=== PATIENT | male | born 1950 | race Asian ===

== ENCOUNTER 2017-04-02 19:05 | Emergency (ER) | payer BC, OTHER ==
[2017-04-02 19:15] VITALS: BP 157/77; PULSE 76; TEMP 98.5
--- NOTE | 2017-04-02 19:40 | PDOC ---
Attending Attestation - Resident Resident Name: Ruby Collado - ED Attending Attestation I have performed the following: I have examined & evaluated the patient, The case was reviewed & discussed with the resident, I agree w/resident's findings & plan, Exceptions are as noted - HPI HPI: 04/02/17 19:38 Pt s/p fall, sustaining a laceration to back of head. admits to drink alcohol prior to presentation.
--- NOTE | 2017-04-02 19:55 | PDOC ---
History of Present Illness - General Chief Complaint: Laceration Stated Complaint: LACERATION/FALL/INTOX Time Seen by Provider: 04/02/17 19:16 - History of Present Illness Initial Comments: 04/02/17 19:54 "I was drunk" Patient is a 66 y.o. male who presents after falling while inebriated. As per patient he fell backwards htting his occiput. Patient is unsure of LOC and is still inebriated at time of HPI. Past History - Past Medical History Allergies/Adverse Reactions: Allergies Allergy/AdvReac Type Severity Reaction Status Date / Time Penicillins Allergy Unknown Verified 04/02/17 19:12 Home Medications: Ambulatory Orders Unobtainable [Unobtainable] 07/02/14 COPD: No Diabetes: Yes HTN: Yes Hypercholesterolemia: Yes - Suicide/Smoking/Psychosocial Hx Smoking History: Never smoked Have you smoked in the past 12 months: No Information on smoking cessation initiated: No Hx Alcohol Use: No Drug/Substance Use Hx: No Review of Systems - Review of Systems Constitutional: No: Chills, Fever HEENTM: No: Blurred Vision Respiratory: No: Shortness of Breath Cardiac (ROS): No: Chest Pain Neurological: Yes: Headache. No: Seizure, Tingling, Tremors, Weakness *Physical Exam - Vital Signs Last Vital Signs Temp Pulse Resp BP Pulse Ox 98.5 F 76 18 157/77 97 04/02/17 19:12 04/02/17 19:12 04/02/17 19:12 04/02/17 19:12 04/02/17 19:12 - Physical Exam General Appearance: Yes: Alcohol on Breath, Thin HEENT: positive: RUDY, Other (4 cm linear mid occiptal laceration; @ time of exam clean, dry with no active hemorrhage). negative: TM Bulging, TM Dull, TM Erythema Respiratory/Chest: positive: Lungs Clear Cardiovascular: positive: S1, S2 Gastrointestinal/Abdominal: positive: Normal Bowel Sounds, Soft Neurologic: positive: application integrator II-XII NML intact, Fully Oriented, Alert, Respond to painful stimul, Responsive, Finger to Nose (mild finger to nose dysmetria likely 2/2 to active alcohol intoxication) ED Treatment Course - RADIOLOGY Radiology Studies Ordered: Category Date Time Status CERVICAL SPINE CT W/O CONTR [CT] Stat CT Scan 04/02/17 19:[address] WITHOUT CONTRAST [CT] Stat CT Scan 04/02/17 19:19 Ordered Medical Decision Making - Medical Decision Making 04/02/17 22:02 Patient is a 66 y.o. male who presents after a fall with occiptal head trauma and uncertain LOC. On PE, patient is alert, moving all 4 extremities and neurologically intact. CT head/C-spine negative. 4 staple applied to laceration, patient given return precautions and discharged home. *DC/Admit/Observation/Transfer Diagnosis at time of Disposition: Laceration - Discharge Dispostion Disposition: HOME Condition at time of disposition: Good Admit: No - Referrals Referrals: Celine Fitzgerald MD [Primary Care Provider] - - Patient Instructions Printed Discharge Instructions: DI for Laceration Repair -- [place], DI for Alcohol Abuse Additional Instructions: Please return to the Emergency Department for any severe headache, confusion, visual changes or worsening or concerning symptoms. - Post Discharge Activity
--- NOTE | 2017-04-02 21:41 | PDOC ---
Attending Attestation - Resident Resident Name: Ruby Collado - ED Attending Attestation I have performed the following: I have examined & evaluated the patient, The case was reviewed & discussed with the resident, I agree w/resident's findings & plan, Exceptions are as noted - HPI HPI: 04/03/17 19:40 Pt s/p fall + AOB, probable LOC. Denies any complaints. Sustained laceration to top of head. - Physicial Exam PE: 04/02/17 21:39 *Physical Exam General Appearance: Yes: Appropriately Dressed. No: Apparent Distress, Intoxicated HEENT: positive: EOMI, RUDY, Normal ENT Inspection, Normal Voice, TMs Normal, Pharynx Normal. superficial laceration to the parieto-occipital region approximately 1 cm. negative: Pale Conjunctivae, Photophobia, Scleral Icterus ( R), Scleral Icterus (L) Neck: positive: Trachea midline, Normal Thyroid, Supple. negative: Tender, Rigid, Carotid bruit, Stridor, Lymphadenopathy (R), Lymphadenopathy (L), Thyromegaly Respiratory/Chest: positive: Lungs Clear, Normal Breath Sounds. negative: Chest Tender, Respiratory Distress, Accessory Muscle Use, Labored Respiration, RES, Crackles, Rales, Rhonchi, Stridor, Wheezing, Dullness Cardiovascular: positive: Regular Rhythm, Regular Rate, S1, S2. negative: Edema , JVD, Murmur, Bradycardia, Tachycardia Vascular Pulses: Dorsalis-Pedis (R): 2+, Doralis-Pedis (L): 2+ Gastrointestinal/Abdominal: positive: Normal Bowel Sounds, Flat, Soft. negative : Tender, Organomegaly, Pulsatile Mass, Increased Bowel Sounds, Decreased BS, Distended, Guarding, Rebound, Hernia, Hepatomegaly, Spleenomegaly Lymphatic: negative: Adenopathy, Tenderness Musculoskeletal: positive: Normal Inspection. negative: CVA Tenderness, Decreased Range of Motion Extremity: positive: Normal Capillary Refill, Normal Inspection, Normal Range of Motion, Pelvis Stable. negative: Tender, Pedal Edema, Swelling, Erythema Integumentary: positive: Normal Color, Dry, Warm. negative: Cyanotic, Erythema , Jaundice, Rash Neurologic: positive: assessment counselor II-XII NML intact, Fully Oriented, Alert, Normal Mood/ Affect, Motor Strength 5/5. negative: EOM Palsy, Facial Droop, Sensory Deficit - Medical Decision Making 04/03/17 19:39 Pt treated and released
--- NOTE | 2017-04-08 14:39 | EKG ---
Test Reason : Blood Pressure : / mmHG Vent. Rate : 071 BPM Atrial Rate : 071 BPM P-R Int : 148 ms QRS Dur : 072 ms QT Int : 404 ms P-R-T Axes : 061 058 069 degrees QTc Int : 439 ms NORMAL SINUS RHYTHM POSSIBLE LEFT ATRIAL ENLARGEMENT BORDERLINE ECG WHEN COMPARED WITH ECG OF 19-APR-2000 08:25, NONSPECIFIC T WAVE ABNORMALITY NO LONGER EVIDENT IN LATERAL LEADS Confirmed by RAJ TELLO, MELVIN ([id number]) on 04/08/2017 2:39:24 PM Referred By: Confirmed By:MELVIN ANTHONY MD
== END 2017-04-02 22:15 | disposition home or self-care (01) ==
LOC: JER 19:05
PROC: 0HQ0XZZ Repair Scalp Skin, External Approach (ICD-10-PCS; principal; 2017-04-02)
DX: S01.01XA Laceration without foreign body of scalp, initial encounter (principal); W18.39XA Other fall on same level, initial encounter; Y93.89 Activity, other specified; Y92.018 Other place in single-family (private) house as the place of occurrence of the external cause; F10.10 Alcohol abuse, uncomplicated; I10 Essential (primary) hypertension; E78.00 Pure hypercholesterolemia, unspecified; E11.9 Type 2 diabetes mellitus without complications
CPT/HCPCS: 70450-TC; 72125-TC; 93005; 93010; 99283-25

== ENCOUNTER 2018-06-13 13:53 | Inpatient (IN) | payer BC, OTHER ==
--- NOTE | 2018-06-13 15:43 | PDOC ---
History of Present Illness - General Chief Complaint: Nausea/Vomiting Stated Complaint: VOMITING Time Seen by Provider: 06/13/18 15:42 - History of Present Illness Initial Comments: 67 yo M with PMH of ETOH abuse, HTN, HLD, DM presenting with hematemesis x 3 days. Patient is not forthcoming with his history but his is at the bedside and says she has seen significant dark red blood in his vomit, about five episodes per day. Patient has had a poor appetite. He reports that he has not had alcohol in two days. He usually drinks half a bottle of Henessy. Patient is is unsure if he has had a colonoscopy or endoscopy in the past. He has felt very weak and has had trouble standing or walking. His also notes that he has had some changes that started about three or four months ago: he is forgetful and will ask the same questions repeatedly. She also reports that the patient has had urinary incontinence. No fevers, chills, chest pain, or shortness of breath. PCP: Dr. Fitzgerald Past History - Past Medical History Allergies/Adverse Reactions: Allergies Allergy/AdvReac Type Severity Reaction Status Date / Time Penicillins Allergy Unknown Verified 06/13/18 14:03 Home Medications: Ambulatory Orders Unobtainable 07/02/14 COPD: No Diabetes: Yes HTN: Yes Hypercholesterolemia: Yes - Suicide/Smoking/Psychosocial Hx Smoking History: Never smoked Have you smoked in the past 12 months: No Hx Alcohol Use: No Drug/Substance Use Hx: No Review of Systems - Review of Systems Comments:: Constitutional: no fever, no chills HEENT: no throat pain, no dysphagia Cardiovascular: no chest pain, no palpitations Respiratory: no cough, no shortness of breath Gastrointestinal: no abdominal pain, + vomiting Genitourinary: no dysuria, no frequency Musculoskeletal: no myalgia, no arthralgia Skin: no rash, no itching Neurologic: no headache, +weakness *Physical Exam - Vital Signs Last Vital Signs Temp Pulse Resp BP Pulse Ox 97.9 F 68 18 174/75 H 99 06/13/18 13:55 06/13/18 13:55 06/13/18 13:55 06/13/18 13:55 06/13/18 13:55 - Physical Exam Comments: General: Awake, alert, and fully oriented, in no acute distress Head: No signs of trauma Eyes: EOMI, sclera anicteric ENT: Dry mucus membranes Neck: Normal ROM, supple Lungs: Lungs clear, Normal breath sounds Cardio: Regular rhythm, S1 and S2 present Abdomen: Soft, nontender. No guarding, no rebound, no masses Extremities: Normal range of motion, Distal pulses present SKIN: Warm, Dry, normal turgor Neurologic: Cranial nerves II through XII grossly intact. Normal speech Moderate Sedation - Procedure Monitoring Vital Signs: Procedure Monitoring Vital Signs Temperature 97.9 F 06/13/18 13:55 Pulse Rate 68 06/13/18 13:55 Respiratory Rate 18 06/13/18 13:55 Blood Pressure 174/75 H 06/13/18 13:55 O2 Sat by Pulse Oximetry (%) 99 06/13/18 13:55 ED Treatment Course - LABORATORY CBC & Chemistry Diagram: 06/13/18 16:42 06/13/18 16:42 Medical Decision Making - Medical Decision Making 67 yo M with PMH of ETOH abuse, HTN, HLD, DM presenting with hematemesis x 3 days. hgb=6.5, 2 units prbc's ordered Discussed case with Dr. Sadler, GI specialist, who recommends protonix drip. He does not recommend antibiotics at this time. Plan for admission Here in the ED has asked repeatedly if he can eat or have ice cream. Appears to have forgotten that we have repeatedly told him that he cannot eat. CT head: "1. mild chronic small vessel ischemic changes 2. otherwise, negative unenhanced CT of the brain" No leukocytosis. Normal coags. Lipase elevated, 1301. Cr=1.7, no prior values. EKG: rate 89, QTc 438, NSR, nonspecific ST and T wave abnormality 06/13/18 18:42 Update patient's daughters, one at the bedside and another on the phone. Anamaria, Annette [phone] Patient's , Simran [phone] 06/13/18 19:29 Dr. Marinelli discussed case with inpatient team who accepted patient for admission under Dr. Rodriguez 06/13/18 19:39 *DC/Admit/Observation/Transfer Diagnosis at time of Disposition: Anemia, Hematemesis - Discharge Dispostion Condition at time of disposition: Guarded Decision to Admit order: Yes - Referrals - Patient Instructions - Post Discharge Activity
[2018-06-13] MEDS ORDERED: FOLIC ACID INJECTION - 1 MG, THIAMINE HCL 100 MG, MULTIVIT INJECTION ADULT 10 ML in SOD... IVPB ONE (16:12)
[2018-06-13] MEDS ORDERED: PANTOPRAZOLE SODIUM 40 MG VIAL IVPUSH ONE (16:12)
[2018-06-13 17:04] LABS: EOS % 0.2 % (0-4.5); LYMPH % 17.1 % (8-40); MCH 31.4 pg (25.7-33.7); MCHC 34.5 g/dl (32.0-35.9); MEAN PLT VOLUME 7.5 fl (7.5-11.1); MONO % 7.8 % (3.8-10.2); NEUT % 73.9 % (42.8-82.8); PLATELET COUNT 691 K/MM3 (134-434); RBC 2.08 M/mm3 (4.00-5.60); RDW 16.5 % (11.9-15.9); WHITE BLOOD COUNT 9.3 K/mm3 (4.0-10.0)
[2018-06-13 17:08] LABS: HEMOGLOBIN 6.5 GM/dL (11.7-16.9)
[2018-06-13 17:17] LABS: INR 0.98 (0.83-1.09); PROTHROMBIN TIME (PATIENT) 11.6 SEC (9.7-13.0)
[2018-06-13 17:19] LABS: ACTIVATED PTT 25.7 SECONDS (25.2-36.5)
[2018-06-13 17:25] LABS: LIPASE 1301 U/L (73-393)
[2018-06-13 17:33] LABS: ALBUMIN 3.2 g/dl (3.4-5.0); ALK PHOS 140 U/L (45-117); ANION GAP 11 MMOL/L (8-16); BILIRUBIN,TOTAL 0.3 mg/dL (0.2-1); BLOOD UREA NITROGEN 20 mg/dL (7-18); CALCIUM 8.4 mg/dL (8.5-10.1); CHLORIDE 100 mmol/L (98-107); CO2 25 mmol/L (21-32); CREATININE 1.7 mg/dL (0.55-1.3); GLUCOSE,RANDOM 189 mg/dL (74-106); POTASSIUM 4.5 mmol/L (3.5-5.1); SGOT/AST 43 U/L (15-37); SGPT/ALT 46 U/L (13-61); SODIUM 136 mmol/L (136-145); TOT PROT 6.9 g/dl (6.4-8.2)
--- NOTE | 2018-06-13 18:12 | PDOC ---
Attending Attestation - HPI HPI: 06/13/18 18:26 The patient is a 67 year old male with past medical history significant for HTN , DM, HLD presents to the emergency department with hematemesis. The patient presents with 3 days of red to black episode of emesis, associated with melena. Per at bedside, the patients been having increased confusion. The patient reports hes a daily alcohol user. Denies hx of GI follow up. Denies fever, chills, chest pain, shortness of breath, or prior similar symptoms. Denies prior ICU stay. Denies hx of seizures. Allergies: penicillins PCP: Dr. Fitzgerald. - Physicial Exam PE: 06/13/18 18:26 Vitals: Triage Vital signs reviewed General Appearance: no acute distress, well nourished well developed, Neck: Supple;No Nuchal rigidity Chest Wall: Nontender Cardiac: Regular rate and rhythm, no murmurs, no rubs, no gallops, Lungs: Clear to auscultation bilateral, good air movement bilaterally, Abdomen: Soft, nondistended, normal bowel sounds, nontender to palpation Extremities: Full range of motion to all extremities, no cyanosis, clubbing, or edema Skin: Warm and dry, no rashes or lesions, no petechiae Psych: normal mood, normal affect - Medical Decision Making 06/13/18 18:28 Plan: EKG, CT head, Fluids, Type and Screen, Chest X-ray and Urine Culture. Admission: Microblog sent. Exam: CT head without IV contrast. DATE OF SERVICE: 2018-06-13 18:14:52 THIS DOCUMENT HAS BEEN ELECTRONICALLY SIGNED Darren Junior MD 06/13/2018 17:32 EXAMINING CHAIR ASSEMBLER Impression: 1. Mild chronic small vessel ischemic changes. 2. Otherwise, negative unenhanced CT of the brain. EKG: EKG performed at 17:19:53 demonstrate vent. rate of 89 bpm, normal sinus rhythm , Nonspecific ST anf T wave abnormality. Phone Calls: Call placed to Dr. Sadler at 6:05 pm. Case discussed with Dr. Sadler at 6:29 pm. 06/13/18 21:44 Documentation prepared by Nidhi Fung, acting as emergency medical technician basic for Kobi Marinelli MD. <Nidhi Fung - Last Filed: 06/13/18 21:44> - Resident Resident Name: Radha Root - ED Attending Attestation I have performed the following: I have examined & evaluated the patient, The case was reviewed & discussed with the resident, I agree w/resident's findings & plan, Exceptions are as noted - Critical Care Time Total Critical Care Time: 36 Critical Care Statement: The care of this patient involved high complexity decision making to prevent further life threatening deterioration of the patient 's condition and/or to evaluate & treat vital organ system(s) failure or risk of failure. - Medical Decision Making 06/13/18 22:37 67 years old past medical history significant for hypertension diabetes hyperlipidemia presents emergency department several day history of hematemesis Low hemoglobin and hematocrit patient being transfused 2 units packed red blood cells GI has been made aware Patient with no abdominal discomfort examination however lipase noted to be elevated At this time given no pain no fever no white count likely alcoholic pancreatitis patient will be admitted to medicine for further management with GI consultation after transfusion of blood for further management <Kobi Marinelli - Last Filed: 06/13/18 22:37>
--- NOTE | 2018-06-13 19:18 | PN ---
Teaching Attending Note Name of Resident: Carlos Almeida ATTENDING PHYSICIAN STATEMENT I saw and evaluated the patient. I reviewed the resident's note and discussed the case with the resident. I agree with the resident's findings and plan as documented. SUBJECTIVE: Patient is a 67 year old man with PMH of HTN, alcohol abuse, penicillin allergy , DM, HLD presents to the ER with hematemesis. The patient presents with 3 days of red to black episode of emesis, associated with melena. Per at bedside, the patients been having increased confusion. The patient reports hes a daily alcohol user - drinks half a bottle of Sraah daily. Patient is is unsure if he has evr had a colonoscopy or endoscopy. He has felt very weak and has had trouble standing or walking. His also notes that he has had some changes that started about three or four months ago: he is forgetful and will ask the same questions repeatedly. She also reports that the patient has had urinary incontinence. Denies history of GI follow up. Denies fever, chills, chest pain, shortness of breath, or prior similar symptoms. Denies prior ICU stay. Denies history of seizures. OBJECTIVE: Alert Vital Signs Period Temp Pulse Resp BP Sys/Colin Pulse Ox Last 24 Hr 97.9 F 68 18 174/75 99 HEENT: No Jaundice, eye redness or discharge, PERRLA, +Pallor, EOMI. Normocephalic, atraumatic. External ears are normal and hearing is grossly intact. No nasal discharge. Neck: Supple, nontender. No palpable adenopathy or thyromegaly. No JVD Chest: Good effort. Clear to auscultation and percussion. Heart: Regular. No S3, rub; 2/6 DANY Abdomen: Not distended, soft, nontender and no HSM. No rebound or guarding. Normoactive bowel sounds. Ext: Peripheral pulses intact. No leg edema. Skin: Warm and dry. No petechiae, rash or ecchymosis. Neuro: Alert. Oriented to person and place. CN 2-12 grossly intact. Sensation grossly intact in all four extremities and DTR are symmetric. Current Medications Generic Name Dose Route Start Last Admin Trade Name Freq PRN Reason Stop Dose Admin Folic Acid 1 mg/ Thiamine HCl 1,000 mls @ 125 mls/hr 06/13/18 16:12 06/13/18 16:56 100 mg/ Multivitamins/Minerals IVPB 06/14/18 00:11 125 mls/hr 10 ml/ Sodium Chloride ONCE ONE Administration Pantoprazole Sodium 80 mg/ 100 mls @ 10 mls/hr 06/13/18 18:30 Sodium Chloride IVPB Q10H HENRY 8 MG/HR Home Medications Medication Instructions Recorded Unobtainable 07/02/14 Abnormal Lab Results 06/13/18 06/13/18 06/13/18 16:42 16:42 16:42 RBC 2.08 L Hgb 6.5 L* Hct 19.0 L RDW 16.5 H Plt Count 691 H BUN 20 H Creatinine 1.7 H Random Glucose 189 H Calcium 8.4 L AST 43 H Alkaline Phosphatase 140 H Albumin 3.2 L Lipase Crossmatch See Detail 06/13/18 16:42 RBC Hgb Hct RDW Plt Count BUN Creatinine Random Glucose Calcium AST Alkaline Phosphatase Albumin Lipase 1301 H Crossmatch ASSESSMENT AND PLAN: 1. GI bleeding - Needs further workup to identify precise source of upper GI bleeding. GI consulted and patient getting IV protonix drip as recommended. Getting PRBC transfusion. EKG shows NSR with no significant ST-T wave changes. Being kept NPO. Will benefit from IV iron therapy going forward. No acute pathology on Head CT scan. Will get Abd/Pelvis CT scan in view of elevated lipase. Trend lipase and get Urinalysis. 2. Hypoalbuminemia - Possibly due to combined effects of malnutrition and inflammation associated with comorbid chronic conditions. Will ensure adequate dietary protein intake and also consult warehouse coordinator. 3. DM For now, we will hold the home diabetes drugs and implement sliding scale insulin regimen. Provide comprehensive diabetes care with patient teaching and counseling about the importance of adherence to prescribed diabetes regimen, euglycemia, eye care and foot care. 4. ADEEL - Though he has risk factors for CKD, likely has ADEEL too due to volume loss. Getting volume repleted. Will consult nephrology and avoid nephrotoxic agents such as NSAIDS, aminoglycosides, contrast dyes and certain Alternative medicine products. 5. Alcohol abuse - [facility], fall and aspiration precautions. Treat with thiamine and folic acid and monitor electrolytes (Ca,Mg,K,P). 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 6. Uncontrolled Hypertension - Restart outpatient antihypertensive drugs once stable. Will revise regimen to ensure smooth [id number] good BP control. Nonpharmacologic measures to control hypertension like weight loss, salt restriction and exercise discussed. 7. DVT prophylaxis - SCDs, TEDs, Early ambulation 8. Advance directives - Full code
[2018-06-13] MEDS: PANTOPRAZOLE SODIUM 80 MG in SODIUM CHLORIDE 100 ML IVPB SCH (19:50)
--- NOTE | 2018-06-13 20:24 | HP ---
CHIEF COMPLAINT: hematemesis PCP: Dr. Fitzgerald HISTORY OF PRESENT ILLNESS: Patient is a 67 y/o M w/ PMHx EtOH abuse, HTN, HLD, DM p/w dark red hematemesis ~5 episodes per day x 3 days a/w generalized weakness. Denies abdominal pain, diarrhea, melena, hematochezia, chest pain, SOB, palpitations. Denies headache presently but did c/o headache on presentation. Per and daughter at bedside , he drinks 1/2 to 1 bottle of hard liquor per day. EGD/colonoscopy Hx is unknown. Has had tremors when abstinent in the past, no tremors thus far during current presentation. Per and daughter, patient's mentation represents an acute decline from baseline. On presentation was hemodynamically stable though hypertensive. Hb was 6.5, Cr 1.7 (no known prior), LFTs mildly elevated, lipase 1301. 2U PRBCs ordered in ED, one push of PTX given. Dr. Sadler was consulted for GI and requested PTX gtt. NCHCT negative. ER course was notable for: (1) Hb 6.5, (2) Lipase 1301 (3) HCT negative. Recent Travel: PAST MEDICAL HISTORY: As per HPI PAST SURGICAL HISTORY: Social History: Smoking: Alcohol: as per HPI Drugs: Family History: Allergies Penicillins Allergy (Unknown, Verified 06/13/18 14:03) HOME MEDICATIONS: Home Medications Medication Instructions Recorded Unobtainable 07/02/14 REVIEW OF SYSTEMS As per [facility] PHYSICAL EXAMINATION Vital Signs - 24 hr 06/13/18 13:55 Temperature 97.9 F Pulse Rate 68 Respiratory 18 Rate Blood Pressure 174/75 H O2 Sat by Pulse 99 Oximetry (%) GENERAL: Awake, alert, disoriented to date, NAD HEENT: NC/AT, PERRLA, EOMI, MMM, no blood or exudates in oropharynx NECK: Normal range of motion, supple without lymphadenopathy, JVD, or masses. LUNGS: CTA b/l HEART: RRR, III/ holosystolic murmur ABDOMEN: +bs, soft, mildly distended, non-tender, non-tympanitic, no fluid wave EXTREMITIES: 2+ pulses, warm, well-perfused. No calf tenderness. No peripheral edema. NEUROLOGICAL: upholsterer inside, motor, sensory systems w/o focal deficit PSYCHIATRIC: mildly confused, perseverating, continually asks whether PO intake is permissible SKIN: Warm, dry, normal turgor Laboratory Results - last 24 hr 06/13/18 06/13/18 06/13/18 16:42 16:42 16:42 WBC 9.3 RBC 2.08 L Hgb 6.5 L* Hct 19.0 L MCV 91.0 MCH 31.4 MCHC 34.5 RDW 16.5 H Plt Count 691 H MPV 7.5 Absolute Neuts (auto) 6.9 Neutrophils % 73.9 Lymphocytes % 17.1 Monocytes % 7.8 Eosinophils % 0.2 Basophils % 1.0 Nucleated RBC % 0 PT with INR INR PTT (Actin FS) Sodium 136 Potassium 4.5 Chloride 100 Carbon Dioxide 25 Anion Gap 11 BUN 20 H Creatinine 1.7 H Creat Clearance w eGFR 40.53 Random Glucose 189 H Calcium 8.4 L Total Bilirubin 0.3 AST 43 H ALT 46 Alkaline Phosphatase 140 H Creatine Kinase 48 Troponin I < 0.02 Total Protein 6.9 Albumin 3.2 L Lipase Alcohol, Quantitative Blood Type A POSITIVE Antibody Screen Negative Crossmatch See Detail 06/13/18 06/13/18 06/13/18 16:42 16:42 18:22 WBC RBC Hgb Hct MCV MCH MCHC RDW Plt Count MPV Absolute Neuts (auto) Neutrophils % Lymphocytes % Monocytes % Eosinophils % Basophils % Nucleated RBC % PT with INR 11.60 INR 0.98 PTT (Actin FS) 25.7 Sodium Potassium Chloride Carbon Dioxide Anion Gap BUN Creatinine Creat Clearance w eGFR Random Glucose Calcium Total Bilirubin AST ALT Alkaline Phosphatase Creatine Kinase Troponin I Total Protein Albumin Lipase 1301 H Alcohol, Quantitative < 3.0 Blood Type A POSITIVE Antibody Screen Crossmatch ASSESSMENT/PLAN: 67 y/o M w/ PMHx EtOH abuse, HTN, HLD, DM p/w dark red hematemesis ~5 episodes per day x 3 days a/w generalized weakness. #hematemesis -2U PRBC -cont PTX gtt -GI consulted (Dr. Sadler), anticipate EGD tomorrow -strictly NPO -LR @ 125 -non-contrast CT a/p given lipase 1301 #EtOH abuse -CIWA score ~7 -negative blood EtOH on presentation -monitor for withdrawal signs/symptoms -non-contrast CT a/p given lipase 1301 -hepatitis panels #HTN/HLD -home meds unknown at this time -IV anti-hypertensives as necessary #DM -BGM ACHS -SSI #FEN -LR @ 125 -monitor and correct electrolytes -strictly NPO #PPx -DVT: mechanical only, no pharmacologic AC -GI: PTX gtt #code -full #dispo -admit to telemetry Visit type - Emergency Visit Emergency Visit: Yes Care time: The patient presented to the Emergency Department on the above date and was hospitalized for further evaluation of their emergent condition. - New Patient This patient is new to me today: Yes Date on this admission: 06/13/18 - Critical Care Critical Care patient: No
[2018-06-13] MEDS: LACTATED RINGERS SOLUTION 1,000 ML/1,000 ML INFUS.BAG IV SCH (20:28)
[2018-06-13] MEDS: INSULIN SLIDING SCALE (NOVOLOG) 1 VIAL SQ SCH (22:21)
[2018-06-14 00:47] VITALS: BMI 20.7
[2018-06-14] MEDS: PANTOPRAZOLE SODIUM 80 MG in SODIUM CHLORIDE 100 ML IVPB SCH ×3 (02:33→15:23)
[2018-06-14] MEDS: INSULIN SLIDING SCALE (NOVOLOG) 1 VIAL SQ SCH ×4 (06:52→22:22)
[2018-06-14] MEDS: LACTATED RINGERS SOLUTION 1,000 ML/1,000 ML INFUS.BAG IV SCH ×3 (06:56→22:23)
[2018-06-14 09:18] LABS: BASO % 0.5 % (0-2.0); EOS % 0.5 % (0-4.5); HEMATOCRIT 26.4 % (35.4-49); HEMOGLOBIN 9.5 GM/dL (11.7-16.9); LYMPH % 22.9 % (8-40); MCH 31.7 pg (25.7-33.7); MEAN CELL VOLUME 87.9 fl (80-96); MEAN PLT VOLUME 7.4 fl (7.5-11.1); MONO % 8.8 % (3.8-10.2); NEUT % 67.3 % (42.8-82.8); PLATELET COUNT 569 K/MM3 (134-434); RBC 3.01 M/mm3 (4.00-5.60); RDW 15.5 % (11.9-15.9); WHITE BLOOD COUNT 9.9 K/mm3 (4.0-10.0)
--- NOTE | 2018-06-14 11:06 | PN ---
Physical Exam: SUBJECTIVE: Patient seen and examined, asking to drink. Denies any nausea, vomiting, abdominal pain, dizziness, chest pain. OBJECTIVE: Vital Signs Period Temp Pulse Resp BP Sys/Colin Pulse Ox Last 24 Hr 97.9 F-99.4 F 68-86 17-18 142-174/74-93 97-99 GENERAL: The patient is awake, alert, oriented to place, person, oriented to year but not to month, no acute distress HEAD: Normal with no signs of trauma. EYES: PERRL, extraocular movements intact, sclera anicteric, conjunctiva clear. No ptosis. ENT: Ears normal, nares patent, oropharynx clear without exudates, moist mucous membranes. NECK: soft, supple, no JVD LUNGS: Breath sounds equal, clear to auscultation bilaterally, no wheezes, no crackles, no accessory muscle use. HEART: Regular rate and rhythm, S1, S2 ABDOMEN: Soft, nontender, nondistended, normoactive bowel sounds, no guarding, no rebound EXTREMITIES: 2+ pulses, warm, well-perfused, no edema. NEUROLOGICAL: Cranial nerves II through XII grossly intact. Normal speech, gait not observed. no asterexis or tremors noted PSYCH: Normal mood, normal affect. SKIN: Warm, dry, normal turgor, no rashes or lesions noted Laboratory Results - last 24 hr 06/13/18 06/13/18 06/13/18 16:42 16:42 16:42 WBC 9.3 RBC 2.08 L Hgb 6.5 L* Hct 19.0 L MCV 91.0 MCH 31.4 MCHC 34.5 RDW 16.5 H Plt Count 691 H MPV 7.5 Absolute Neuts (auto) 6.9 Neutrophils % 73.9 Lymphocytes % 17.1 Monocytes % 7.8 Eosinophils % 0.2 Basophils % 1.0 Nucleated RBC % 0 PT with INR INR PTT (Actin FS) Sodium 136 Potassium 4.5 Chloride 100 Carbon Dioxide 25 Anion Gap 11 BUN 20 H Creatinine 1.7 H Creat Clearance w eGFR 40.53 POC Glucometer Random Glucose 189 H Calcium 8.4 L Total Bilirubin 0.3 AST 43 H ALT 46 Alkaline Phosphatase 140 H Creatine Kinase 48 Troponin I < 0.02 Total Protein 6.9 Albumin 3.2 L Lipase Alcohol, Quantitative Blood Type A POSITIVE Antibody Screen Negative Crossmatch See Detail 06/13/18 06/13/18 06/13/18 16:42 16:42 18:22 WBC RBC Hgb Hct MCV MCH MCHC RDW Plt Count MPV Absolute Neuts (auto) Neutrophils % Lymphocytes % Monocytes % Eosinophils % Basophils % Nucleated RBC % PT with INR 11.60 INR 0.98 PTT (Actin FS) 25.7 Sodium Potassium Chloride Carbon Dioxide Anion Gap BUN Creatinine Creat Clearance w eGFR POC Glucometer Random Glucose Calcium Total Bilirubin AST ALT Alkaline Phosphatase Creatine Kinase Troponin I Total Protein Albumin Lipase 1301 H Alcohol, Quantitative < 3.0 Blood Type A POSITIVE Antibody Screen Crossmatch 06/13/18 06/14/18 06/14/18 22:19 06:26 07:30 WBC 9.9 RBC 3.01 L Hgb 9.5 L Hct 26.4 L D MCV 87.9 MCH 31.7 MCHC 36.0 H RDW 15.5 Plt Count 569 H MPV 7.4 L Absolute Neuts (auto) 6.7 Neutrophils % 67.3 Lymphocytes % 22.9 D Monocytes % 8.8 Eosinophils % 0.5 D Basophils % 0.5 Nucleated RBC % 0 PT with INR INR PTT (Actin FS) Sodium Potassium Chloride Carbon Dioxide Anion Gap BUN Creatinine Creat Clearance w eGFR POC Glucometer 115 129 Random Glucose Calcium Total Bilirubin AST ALT Alkaline Phosphatase Creatine Kinase Troponin I Total Protein Albumin Lipase Alcohol, Quantitative Blood Type Antibody Screen Crossmatch Active Medications Generic Name Dose Route Start Last Admin Trade Name Freq PRN Reason Stop Dose Admin Pantoprazole Sodium 80 mg/ 100 mls @ 10 mls/hr 06/13/18 18:30 06/14/18 06:51 Sodium Chloride IVPB Not Given Q10H HENRY 8 MG/HR Lactated Ringer's 1,000 ml in 1,000 mls @ 125 mls/hr 06/13/18 20:15 06/14/18 06:56 Lactated Ringers Solution IV 125 mls/hr ASDIR HENRY Administration Insulin Aspart 1 vial 06/13/18 22:00 06/14/18 06:52 Novolog Vial Sliding Scale - SQ Not Given ACHS HENRY Protocol CT head prelim neg for acute process ASSESSMENT/PLAN: 67 yom with PMHx of HTN, DM, HLD, ETOH abuse admitted with hemetemesis/melena, anemia and ongoing ETOH abuse with AMS -Hemetemesis/melena, r/o Esophageal varices vs aclohol gastritis vs PUD, low suspicion for lower GI source -Acute vs acute on chronic anemia, suspect from above -DM -HTN -HLD -ETOH abuse -AMS, suspect encephalopathy from ETOH intoxication +/- underlying cognitive impairment from long standing alcohol use Plan: s/p 2 units PRBC, appropriate response. No episodes of hemetemsis/melena in house. Protonix drip, NPO, IVF Follow up with GI for EGD. Close hemodynamic and h/h monitoring BGM,ISS, NPO Hold anti hypertensives. Trend LFTs Detox consult. No current evidence of alohol withdrawal, monitor for now. [facility] and called to reconcile medications, unable to reach. DVTPPX with SCDs Dispo pending GI work up and clinical improvement. Plan discussed with patient and nursing in detail, all questions answered. Visit type - Emergency Visit Emergency Visit: Yes ED Registration Date: 06/13/18 Care time: The patient presented to the Emergency Department on the above date and was hospitalized for further evaluation of their emergent condition. - New Patient This patient is new to me today: No - Critical Care Critical Care patient: No - Discharge Referral Referred to [facility] Med P.C.: No
[2018-06-14 12:40] LABS: ALBUMIN 2.7 g/dl (3.4-5.0); ALK PHOS 104 U/L (45-117); ANION GAP 12 MMOL/L (8-16); BILIRUBIN,TOTAL 1.1 mg/dL (0.2-1); BLOOD UREA NITROGEN 13 mg/dL (7-18); CALCIUM 7.9 mg/dL (8.5-10.1); CHLORIDE 106 mmol/L (98-107); CO2 21 mmol/L (21-32); CREATININE 1.2 mg/dL (0.55-1.3); GLUCOSE,RANDOM 123 mg/dL (74-106); MAGNESIUM 1.8 mg/dL (1.8-2.4); PHOSPHOROUS 2.3 mg/dL (2.5-4.9); POTASSIUM 3.9 mmol/L (3.5-5.1); SGOT/AST 19 U/L (15-37); SGPT/ALT 29 U/L (13-61); SODIUM 139 mmol/L (136-145); TOT PROT 5.3 g/dl (6.4-8.2)
--- NOTE | 2018-06-14 12:54 | EKG ---
Test Reason : Blood Pressure : / mmHG Vent. Rate : 089 BPM Atrial Rate : 089 BPM P-R Int : 126 ms QRS Dur : 078 ms QT Int : 360 ms P-R-T Axes : 061 064 095 degrees QTc Int : 438 ms POOR DATA QUALITY, INTERPRETATION MAY BE ADVERSELY AFFECTED NORMAL SINUS RHYTHM NONSPECIFIC ST AND T WAVE ABNORMALITY ABNORMAL ECG WHEN COMPARED WITH ECG OF 02-APR-2017 19:19, NONSPECIFIC T WAVE ABNORMALITY NOW EVIDENT IN LATERAL LEADS Confirmed by WILL LANDEROS MD ([id number]) on 06/14/2018 12:54:21 PM Referred By: Confirmed By:WILL LANDEROS MD
[2018-06-14] MEDS ORDERED: POTASSIUM PHOSPHATE 25 MM in SODIUM CHLORIDE 250 ML IVPB ONE (17:15)
[2018-06-14] MEDS ORDERED: POTASSIUM PHOSPHATE IVPB ONE (17:16)
[2018-06-14] MEDS ORDERED: SODIUM CHLORIDE IVPB ONE (17:16)
--- NOTE | 2018-06-14 17:51 | CON.GI ---
Consult Consult Specialty:: covering for Dr Beatty Reason for Consultation:: Upper gi bleeding - History of Present Illness History of Present Illness: 67 y/o male with hsitory of alcohol abuse was admitted because of 3 day history of hematemesis associated with fall yesterday. He denies Aspirin and NSAID use, dysphagia, melena and rectal bleeding. Today he is asymptomatic. No reports of vomiting and is hungry. I spoke to his daughter and understands that her father will need endoscopy after the holiday this Friday, - History Source History Provided By: Patient Limitations to Obtaining History: No Limitations - Alcohol/Substance Use Hx Alcohol Use: Yes - Smoking History Smoking history: Never smoked Have you smoked in the past 12 months: No Home Medications - Allergies Allergies/Adverse Reactions: Allergies Allergy/AdvReac Type Severity Reaction Status Date / Time Penicillins Allergy Unknown Verified 06/13/18 14:03 - Home Medications Home Medications: Ambulatory Orders Amlodipine Besylate [Norvasc -] 10 mg PO DAILY 06/14/18 Glipizide [Glucotrol] 5 mg PO DAILY 06/14/18 Losartan Potassium [Cozaar -] 50 mg PO DAILY 06/14/18 Metformin HCl [Glucophage] 500 mg PO BIDAC 06/14/18 Simvastatin [Zocor -] 20 mg PO HS 06/14/18 Review of Systems - Review of Systems Constitutional: denies: No Symptoms, Chills, Diaphoresis, Fever, Lethargy, Loss of Appetite, Malaise, Night Sweats, Unintentional Wgt. Loss, Weakness, Other Eyes: denies: No Symptoms, Blind Spots, Blurred Vision, Double Vision, Eye Pain , Floaters, Photophobia, Recent Change in Vision, Other HENT: denies: No Symptoms, Difficult Swallowing, Ear Discharge, Ear Pain, Epistaxis, Gingival Bleeding, Hearing Loss, Mouth Swelling, Nasal Congestion, Ocular Prosthesis, Throat Pain, Toothache, Ringing in Ears, Other Neck: denies: No Symptoms, Decreased ROM, Lumps, Pain on Movement, Stiffness, Swollen Glands, Tenderness, Other Cardiovascular: denies: No Symptoms, Chest Pain, Edema, Palpitations, Shortness of Breath, Other Respiratory: denies: No Symptoms, Cough, Exercise Intolerance, Hemoptysis, Orthopnea, PND, Snoring, SOB, SOB on Exertion, Wheezing, Other Gastrointestinal: reports: Vomiting Blood (==resolved). denies: Bloating, Constipation, Diarrhea, Dysphagia, Rectal Bleeding, Vomiting Physical Exam-GI Vital Signs: Vital Signs Temperature 98.3 F 06/14/18 14:32 Pulse Rate 88 06/14/18 14:32 Respiratory Rate 17 06/14/18 14:32 Blood Pressure 163/79 06/14/18 14:32 O2 Sat by Pulse Oximetry (%) 97 06/14/18 01:19 Constitutional: Yes: Well Nourished Eyes: Yes: Conjunctiva Clear HENT: Yes: Atraumatic Neck: Yes: Supple Cardiovascular: Yes: Regular Rate and Rhythm Respiratory: Yes: Regular ...Palpate: Yes: Soft. No: Firm/Rigid, Guarding, Hepatomegaly, Mass, Pulsatile Mass, Splenomegaly, Tenderness Labs: CBC, BMP 06/14/18 07:30 06/14/18 12:05 INR, PTT INR 0.98 (0.83-1.09) 06/13/18 16:42 Hepatic Panel Total Bilirubin 1.1 mg/dL (0.2-1) H 06/14/18 12:05 AST 19 U/L (15-37) 06/14/18 12:05 ALT 29 U/L (13-61) 06/14/18 12:05 Alkaline Phosphatase 104 U/L (45-117) 06/14/18 12:05 Albumin 2.7 g/dl (3.4-5.0) L 06/14/18 12:05 Problem List - Problems (1) Hematemesis Assessment/Plan: r/o peptic ulcer disease R> advance to clear liquids continue IV Protonix for EGD Dr Beatty will assume care of the patient tomorrow Code(s): K92.0 - HEMATEMESIS
[2018-06-14] MEDS: amLODIPine BESYLATE 10 MG TABLET (FP) PO SCH (17:58)
[2018-06-14] MEDS ORDERED: INSULIN (NOVOLOG) ASPART 100 UNITS/ML 10ML VIAL ONE (20:38)
[2018-06-14 21:08] LABS: HEMATOCRIT 27.6 % (35.4-49); HEMOGLOBIN 9.8 GM/dL (11.7-16.9); MCH 31.1 pg (25.7-33.7); MCHC 35.6 g/dl (32.0-35.9); MEAN CELL VOLUME 87.3 fl (80-96); MEAN PLT VOLUME 7.2 fl (7.5-11.1); PLATELET COUNT 560 K/MM3 (134-434); RBC 3.16 M/mm3 (4.00-5.60); RDW 15.6 % (11.9-15.9)
[2018-06-15] MEDS: PANTOPRAZOLE SODIUM 80 MG in SODIUM CHLORIDE 100 ML IVPB SCH ×4 (02:38→22:56)
[2018-06-15] MEDS: INSULIN SLIDING SCALE (NOVOLOG) 1 VIAL SQ SCH ×5 (06:03→23:19)
[2018-06-15 08:06] LABS: BASO % 0.7 % (0-2.0); EOS % 0.6 % (0-4.5); HEMATOCRIT 28.4 % (35.4-49); HEMOGLOBIN 9.9 GM/dL (11.7-16.9); LYMPH % 16.2 % (8-40); MCH 30.1 pg (25.7-33.7); MEAN CELL VOLUME 85.9 fl (80-96); MEAN PLT VOLUME 7.1 fl (7.5-11.1); MONO % 7.1 % (3.8-10.2); NEUT % 75.4 % (42.8-82.8); PLATELET COUNT 612 K/MM3 (134-434); RDW 15.8 % (11.9-15.9); WHITE BLOOD COUNT 11.3 K/mm3 (4.0-10.0)
[2018-06-15 08:54] LABS: ALBUMIN 3.1 g/dl (3.4-5.0); ALK PHOS 125 U/L (45-117); ANION GAP 11 MMOL/L (8-16); BILIRUBIN,DIRECT 0.3 mg/dL (0.0-0.2); BILIRUBIN,TOTAL 0.8 mg/dL (0.2-1); BLOOD UREA NITROGEN 8 mg/dL (7-18); CALCIUM 8.6 mg/dL (8.5-10.1); CHLORIDE 102 mmol/L (98-107); CO2 23 mmol/L (21-32); CREATININE 1.1 mg/dL (0.55-1.3); GLUCOSE,RANDOM 116 mg/dL (74-106); MAGNESIUM 1.7 mg/dL (1.8-2.4); PHOSPHOROUS 3.6 mg/dL (2.5-4.9); POTASSIUM 3.8 mmol/L (3.5-5.1); SGOT/AST 18 U/L (15-37); SGPT/ALT 30 U/L (13-61); SODIUM 137 mmol/L (136-145); TOT PROT 6.5 g/dl (6.4-8.2)
[2018-06-15] MEDS: LACTATED RINGERS SOLUTION 1,000 ML/1,000 ML INFUS.BAG IV SCH ×2 (09:22→15:59)
[2018-06-15] MEDS: amLODIPine BESYLATE 10 MG TABLET (FP) PO SCH (09:22)
[2018-06-15] MEDS ORDERED: PT OWN MED DRAWER 7, Y5N ONE (11:05)
[2018-06-15] MEDS ORDERED: MAGNESIUM SULF 50% (8.12 MEQ/2 ML-1 GM VIAL) IVPB ONE (12:15)
--- NOTE | 2018-06-15 12:15 | PN ---
GI Progress Note Subjective: No hematemesis. States being hungry No abdominal pain - Objective Vital Signs: Vital Signs Temperature 97.3 F L 06/15/18 10:00 Pulse Rate 77 06/15/18 10:00 Respiratory Rate 20 06/15/18 10:00 Blood Pressure 154/75 06/15/18 10:00 O2 Sat by Pulse Oximetry (%) 93 L 06/14/18 10:00 Constitutional: Calm Eyes: No: Sclera Icterus Cardiovascular: Yes: Regular Rate and Rhythm Respiratory: Yes: CTA Bilaterally Gastrointestinal Inspection: No: Distention ...Auscultate: Yes: Normoactive Bowel Sounds ...Palpate: No: Hepatomegaly, Splenomegaly, Tenderness ...Percussion: No: Tympanitic Edema: No (No LE edema) Neurological: Yes: Alert Labs: CBC, BMP 06/15/18 07:28 06/15/18 07:28 INR, PTT INR 0.98 (0.83-1.09) 06/13/18 16:42 Problem List - Problems (1) Hematemesis Assessment/Plan: No further vomiting with stable H/H Suspect multifactorial cause of anemia including myelosuppression from alcohol abuse Plan for EGD 06/16. DIscussed this with Mr. Ayala. Discussed potential risks of the procedure like but not limited to bleeding, perforation requiring surgery to repair, infection, sedation medication effects, all of which could be potentially life threatening. I explained the possibility of the need for variceal band ligation as well if varices secondary to his alcohol abuse are noted. He has agreed to the procedure. For now: Clear liquids. NPO after midnight except meds with small sips water Continue PPI drip. If overt bleeding resumes, start octreotide infusion with 50 microgram bolus followed by 50 microgarams per hour, make NPO and transfer to ICU. Code(s): K92.0 - HEMATEMESIS
--- NOTE | 2018-06-15 12:42 | PN ---
Physical Exam: SUBJECTIVE: Patient seen and examined no new complaints overnight. no overnight vomiting. pt states he hungry and wants to eat OBJECTIVE: Vital Signs Period Temp Pulse Resp BP Sys/Colin Pulse Ox Last 24 Hr 97.3 F-98.3 F 77-88 17-20 134-163/73-79 GENERAL: Awake, alert, disoriented to date, NAD HEENT: PERRLA, EOMI, NECK: Normal range of motion, supple without lymphadenopathy, JVD, or masses. LUNGS: CTA b/l HEART: s1s2 normal, holosystlic murmur ABDOMEN: , soft, mildly distended, non-tender, BS + EXTREMITIES: 2+ pulses, warm, well-perfused. No calf tenderness. No peripheral edema. 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, sensory systems w/o focal deficit PSYCHIATRIC: awake, alert SKIN: Warm, dry, normal turgor Laboratory Results - last 24 hr 06/14/18 06/14/18 06/14/18 17:54 20:50 22:19 WBC 12.0 H RBC 3.16 L Hgb 9.8 L Hct 27.6 L MCV 87.3 MCH 31.1 MCHC 35.6 RDW 15.6 Plt Count 560 H MPV 7.2 L Absolute Neuts (auto) Neutrophils % Lymphocytes % Monocytes % Eosinophils % Basophils % Nucleated RBC % Sodium Potassium Chloride Carbon Dioxide Anion Gap BUN Creatinine Creat Clearance w eGFR POC Glucometer 100 186 Random Glucose Calcium Phosphorus Magnesium Total Bilirubin Direct Bilirubin AST ALT Alkaline Phosphatase Total Protein Albumin 06/15/18 06/15/18 06/15/18 05:31 07:28 07:28 WBC 11.3 H RBC 3.30 L Hgb 9.9 L Hct 28.4 L MCV 85.9 MCH 30.1 MCHC 35.0 RDW 15.8 Plt Count 612 H MPV 7.1 L Absolute Neuts (auto) 8.5 H Neutrophils % 75.4 Lymphocytes % 16.2 D Monocytes % 7.1 Eosinophils % 0.6 Basophils % 0.7 Nucleated RBC % 0 Sodium 137 Potassium 3.8 Chloride 102 Carbon Dioxide 23 Anion Gap 11 BUN 8 Creatinine 1.1 Creat Clearance w eGFR > 60 POC Glucometer 111 Random Glucose 116 H Calcium 8.6 Phosphorus 3.6 Magnesium 1.7 L Total Bilirubin 0.8 Direct Bilirubin 0.3 H AST 18 ALT 30 Alkaline Phosphatase 125 H Total Protein 6.5 Albumin 3.1 L 06/15/18 11:12 WBC RBC Hgb Hct MCV MCH MCHC RDW Plt Count MPV Absolute Neuts (auto) Neutrophils % Lymphocytes % Monocytes % Eosinophils % Basophils % Nucleated RBC % Sodium Potassium Chloride Carbon Dioxide Anion Gap BUN Creatinine Creat Clearance w eGFR POC Glucometer 130 Random Glucose Calcium Phosphorus Magnesium Total Bilirubin Direct Bilirubin AST ALT Alkaline Phosphatase Total Protein Albumin Active Medications Generic Name Dose Route Start Last Admin Trade Name Cheyanne PRN Reason Stop Dose Admin Amlodipine Besylate 10 mg 06/14/18 17:00 06/15/18 09:22 Norvasc - PO 10 mg DAILY HENRY Administration Pantoprazole Sodium 80 mg/ 100 mls @ 10 mls/hr 06/13/18 18:30 06/15/18 11:15 Sodium Chloride IVPB 10 mls/hr Q10H HENRY Administration 8 MG/HR Lactated Ringer's 1,000 ml in 1,000 mls @ 125 mls/hr 06/13/18 20:15 06/15/18 09:22 Lactated Ringers Solution IV 125 mls/hr ASDIR HENRY Administration Insulin Aspart 1 vial 06/13/18 22:00 06/15/18 06:03 Novolog Vial Sliding Scale - SQ Not Given ACHS HENRY Protocol ASSESSMENT/PLAN: 67 yom with PMHx of HTN, DM, HLD, ETOH abuse admitted with hemetemesis/melena, anemia and ongoing ETOH abuse with AMS -Hemetemesis/melena, r/o Esophageal varices vs aclohol gastritis vs PUD, low suspicion for lower GI source Monitor vitals 'monitor intake/output hb monitoring no active bleeding. started on clear liquid NPO after mid night. going for egd tomorrow continue protonix drip -Acute vs acute on chronic anemia, suspect from above -DM bgm monitoring insulin sliding scale. -HTN continue amlodipine -ETOH abuse start thiamine daily -no signs of withdrawal Fluid lr 125mlhr electrolyte: hypomagnesemia: repeat in am nutrition: clear liquid. NPo after midnight for egd gi pro: on protonix drip dvt pro: scd Visit type - Emergency Visit Emergency Visit: Yes ED Registration Date: 06/13/18 Care time: The patient presented to the Emergency Department on the above date and was hospitalized for further evaluation of their emergent condition. - New Patient This patient is new to me today: Yes Date on this admission: 06/15/18 - Critical Care Critical Care patient: No
[2018-06-15] MEDS: THIAMINE HCL 100 MG TABLET (FP) PO SCH (13:55)
--- NOTE | 2018-06-15 13:59 | PN ---
Teaching Attending Note Name of Resident: Johnny Fajardo ATTENDING PHYSICIAN STATEMENT I saw and evaluated the patient. I reviewed the resident's note and discussed the case with the resident. I agree with the resident's findings and plan as documented with exceptions below. SUBJECTIVE: Patient seen and examined. no complaints, asking to eat. No further vomiting. Discussed with RN, no BM noted yet. OBJECTIVE: Vital Signs Period Temp Pulse Resp BP Sys/Colin Pulse Ox Last 24 Hr 97.3 F-98.3 F 77-88 17-20 134-163/73-79 98 Intake & Output 06/12/18 06/13/18 06/14/18 06/15/18 23:59 23:59 23:59 23:59 Intake Total 2465 1120 Output Total 1000 Balance 2465 120 Weight 124 lb 124 lb 9 oz General: lying in bed in no acute distress CVS: S1s2 regular, systolic murmur precordium Chest:CTAB, no rales or wheezing Abdomen:soft, NT, ND, positive bowel sounds Extremities: no edema, tremors or asterexis Active Medications Amlodipine Besylate (Norvasc -) 10 mg PO DAILY [facility] Last Admin: 06/15/18 09:22 Dose: 10 mg Pantoprazole Sodium 80 mg/ (Sodium Chloride) 100 mls @ 10 mls/hr IVPB Q10H [facility] Last Admin: 06/15/18 11:15 Dose: 10 mls/hr Lactated Ringer's (Lactated Ringers Solution) 1,000 ml in 1,000 mls @ 125 mls/ hr IV ASDIR [facility] Last Admin: 06/15/18 09:22 Dose: 125 mls/hr Insulin Aspart (Novolog Vial Sliding Scale -) 1 vial SQ ACHS [facility]; Protocol Last Admin: 06/15/18 13:12 Dose: Not Given Thiamine HCl (Vitamin B1 -) 100 mg PO DAILY [facility] Last Admin: 06/15/18 13:55 Dose: 100 mg Laboratory Results - last 24 hr 06/14/18 06/14/18 06/14/18 17:54 20:50 22:19 WBC 12.0 H RBC 3.16 L Hgb 9.8 L Hct 27.6 L MCV 87.3 MCH 31.1 MCHC 35.6 RDW 15.6 Plt Count 560 H MPV 7.2 L Absolute Neuts (auto) Neutrophils % Lymphocytes % Monocytes % Eosinophils % Basophils % Nucleated RBC % Sodium Potassium Chloride Carbon Dioxide Anion Gap BUN Creatinine Creat Clearance w eGFR POC Glucometer 100 186 Random Glucose Calcium Phosphorus Magnesium Total Bilirubin Direct Bilirubin AST ALT Alkaline Phosphatase Total Protein Albumin 06/15/18 06/15/18 06/15/18 05:31 07:28 07:28 WBC 11.3 H RBC 3.30 L Hgb 9.9 L Hct 28.4 L MCV 85.9 MCH 30.1 MCHC 35.0 RDW 15.8 Plt Count 612 H MPV 7.1 L Absolute Neuts (auto) 8.5 H Neutrophils % 75.4 Lymphocytes % 16.2 D Monocytes % 7.1 Eosinophils % 0.6 Basophils % 0.7 Nucleated RBC % 0 Sodium 137 Potassium 3.8 Chloride 102 Carbon Dioxide 23 Anion Gap 11 BUN 8 Creatinine 1.1 Creat Clearance w eGFR > 60 POC Glucometer 111 Random Glucose 116 H Calcium 8.6 Phosphorus 3.6 Magnesium 1.7 L Total Bilirubin 0.8 Direct Bilirubin 0.3 H AST 18 ALT 30 Alkaline Phosphatase 125 H Total Protein 6.5 Albumin 3.1 L 06/15/18 11:12 WBC RBC Hgb Hct MCV MCH MCHC RDW Plt Count MPV Absolute Neuts (auto) Neutrophils % Lymphocytes % Monocytes % Eosinophils % Basophils % Nucleated RBC % Sodium Potassium Chloride Carbon Dioxide Anion Gap BUN Creatinine Creat Clearance w eGFR POC Glucometer 130 Random Glucose Calcium Phosphorus Magnesium Total Bilirubin Direct Bilirubin AST ALT Alkaline Phosphatase Total Protein Albumin CT A/P results reviewed ASSESSMENT AND PLAN: 67 yom with PMHx of HTN, DM, HLD, ETOH abuse admitted with hemetemesis/melena, anemia and ongoing ETOH abuse with AMS -Hemetemesis/melena, r/o Esophageal varices vs aclohol gastritis vs PUD, low suspicion for lower GI source -Acute vs acute on chronic anemia, suspect from above, associated alcohol related bone marrow suppression -DM -HTN -HLD -ETOH abuse -AMS, suspect encephalopathy from ETOH intoxication +/- underlying cognitive impairment from long standing alcohol use Plan: s/p 2 units PRBC, appropriate response. No episodes of hemetemsis/melena in house. H/h stable Protonix drip, Clears, decreased IVF. GI input noted, For EGD 06/16. Close hemodynamic and h/h monitoring BGM,ISS, NPO Resume amlodipine, hold losartan for now. Trend LFTs Detox consult. No current evidence of alcohol withdrawal, monitor for now. DVTPPX with SCDs Dispo in 24-48 hours pending EGD if no further bleed or concerns and stable clinically Plan discussed with patient in detail, all questions answered.
[2018-06-15] MEDS: FOLIC ACID 1 MG TABLET (FP) PO SCH (14:13)
[2018-06-16] MEDS: LACTATED RINGERS SOLUTION 1,000 ML/1,000 ML INFUS.BAG IV SCH ×3 (00:52→16:42)
[2018-06-16] MEDS: INSULIN SLIDING SCALE (NOVOLOG) 1 VIAL SQ SCH ×4 (06:06→21:32)
[2018-06-16 06:59] LABS: BASO % 0.8 % (0-2.0); EOS % 1.1 % (0-4.5); HEMATOCRIT 28.7 % (35.4-49); HEMOGLOBIN 9.9 GM/dL (11.7-16.9); LYMPH % 21.7 % (8-40); MCH 30.1 pg (25.7-33.7); MCHC 34.5 g/dl (32.0-35.9); MEAN CELL VOLUME 87.2 fl (80-96); MEAN PLT VOLUME 6.9 fl (7.5-11.1); MONO % 7.9 % (3.8-10.2); NEUT % 68.5 % (42.8-82.8); PLATELET COUNT 550 K/MM3 (134-434); RBC 3.29 M/mm3 (4.00-5.60); RDW 16.2 % (11.9-15.9); WHITE BLOOD COUNT 10.3 K/mm3 (4.0-10.0)
[2018-06-16 07:25] LABS: ANION GAP 9 MMOL/L (8-16); BLOOD UREA NITROGEN 6 mg/dL (7-18); CALCIUM 8.2 mg/dL (8.5-10.1); CHLORIDE 100 mmol/L (98-107); CO2 26 mmol/L (21-32); CREATININE 1.1 mg/dL (0.55-1.3); GLUCOSE,RANDOM 114 mg/dL (74-106); POTASSIUM 3.7 mmol/L (3.5-5.1); SODIUM 135 mmol/L (136-145)
--- NOTE | 2018-06-16 08:36 | PN ---
Progress Note (short form) - Note Progress Note: EGD complete. Report left in procedural section of physical chart and to be scanned into [employer] Problem List - Problems (1) Hematemesis Code(s): K92.0 - HEMATEMESIS
[2018-06-16] MEDS ORDERED: LORazepam 2 MG/ML SDV VIAL IVPUSH PRN (09:20)
--- NOTE | 2018-06-16 09:20 | PN ---
[facility] Progress Note (SOAP) Subjective: 67 y.o. male referred for etoh use , reports started since age 36 , current daily use 1.5 bottles liquor , admitted for hematemesis /melena , s/p 2 units PRBCs, EGD done today . Pt denies symptoms at this time , denies n/v/ diarrhea , denies h/o withdrawal seizures, blackouts , tremors , denies prior tx episodes, reports interest in rehab after medical stabilization . Denies illicits. PMHX : HTN , DM Active Medications Amlodipine Besylate (Norvasc -) 10 mg PO DAILY [facility] Last Admin: 06/15/18 09:22 Dose: 10 mg Bisacodyl (Dulcolax -) 20 mg PO ONCE ONE Stop: 06/16/18 16:01 Folic Acid (Folic Acid -) 1 mg PO DAILY [facility] Last Admin: 06/15/18 14:13 Dose: 1 mg Lactated Ringer's (Lactated Ringers Solution) 1,000 ml in 1,000 mls @ 100 mls/ hr IV ASDIR [facility] Last Admin: 06/16/18 00:52 Dose: 100 mls/hr Insulin Aspart (Novolog Vial Sliding Scale -) 1 vial SQ [facility]; Protocol Last Admin: 06/16/18 06:06 Dose: Not Given Pantoprazole Sodium (Protonix -) 20 mg PO DAILY [facility] Thiamine HCl (Vitamin B1 -) 100 mg PO DAILY [facility] Last Admin: 06/15/18 13:55 Dose: 100 mg Objective: wnwd resting comfortably , NAD HEENT : NCAT EOMI REsp : no distress noted Neuro : AAO x3 , mild UE edema , mild tremors UE w/ arms extended CBC, BMP 06/16/18 06:00 06/16/18 06:00 Abnormal Lab Results 06/16/18 06/16/18 06:00 06:00 WBC 10.3 H RBC 3.29 L Hgb 9.9 L Hct 28.7 L RDW 16.2 H Plt Count 550 H MPV 6.9 L Sodium 135 L BUN 6 L Random Glucose 114 H Calcium 8.2 L Vital Signs - 24 hr 06/15/18 06/15/18 06/15/18 10:00 14:48 18:38 Temperature 97.3 F L 97.9 F 98.0 F Pulse Rate 77 86 78 Respiratory 20 20 20 Rate Blood Pressure 154/75 116/58 L 119/62 O2 Sat by Pulse Oximetry (%) 06/15/18 06/16/18 06/16/18 21:00 06:00 08:20 Temperature 98.1 F 99.5 F Pulse Rate 76 90 Respiratory 20 16 Rate Blood Pressure 133/63 100/50 L O2 Sat by Pulse 98 99 Oximetry (%) 06/16/18 06/16/18 08:35 08:50 Temperature Pulse Rate 80 80 Respiratory 18 18 Rate Blood Pressure 109/61 113/64 O2 Sat by Pulse 100 100 Oximetry (%) Assessment: Alcohol dependence with mild withdrawal Plan: prn Lorazepam pt is agreeable to go to inpatient rehab after he is medically stable /cleared by medicine . slag worker to address transfer to rehab .
[2018-06-16] MEDS: amLODIPine BESYLATE 10 MG TABLET (FP) PO SCH (10:04)
[2018-06-16] MEDS: THIAMINE HCL 100 MG TABLET (FP) PO SCH (10:05)
[2018-06-16] MEDS: FOLIC ACID 1 MG TABLET (FP) PO SCH (10:05)
[2018-06-16] MEDS: PANTOPRAZOLE 20 MG TABLET (FP) PO SCH (10:05)
--- NOTE | 2018-06-16 11:43 | PN ---
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 OBJECTIVE: Vital Signs Period Temp Pulse Resp BP Sys/Colin Pulse Ox Last 24 Hr 97.2 F-99.5 F 74-90 16-20 100-133/50-68 98-100 GENERAL: Awake, alert, disoriented to date, NAD HEENT: PERRLA, EOMI, NECK: Normal range of motion, supple without lymphadenopathy, JVD, or masses. LUNGS: CTA b/l HEART: s1s2 normal, holosystlic murmur ABDOMEN: , soft, mildly distended, non-tender, BS + EXTREMITIES: 2+ pulses, warm, well-perfused. No calf tenderness. No peripheral edema. 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 w/o focal deficit PSYCHIATRIC: awake, alert SKIN: Warm, dry, normal turgor Laboratory Results - last 24 hr 06/15/18 06/15/18 06/16/18 16:31 21:09 05:39 WBC RBC Hgb Hct MCV MCH MCHC RDW Plt Count MPV Absolute Neuts (auto) Neutrophils % Lymphocytes % Monocytes % Eosinophils % Basophils % Nucleated RBC % Sodium Potassium Chloride Carbon Dioxide Anion Gap BUN Creatinine Creat Clearance w eGFR POC Glucometer 271 52 119 Random Glucose Calcium 06/16/18 06/16/18 06/16/18 06:00 06:00 11:08 WBC 10.3 H RBC 3.29 L Hgb 9.9 L Hct 28.7 L MCV 87.2 MCH 30.1 MCHC 34.5 RDW 16.2 H Plt Count 550 H MPV 6.9 L Absolute Neuts (auto) 7.0 Neutrophils % 68.5 Lymphocytes % 21.7 D Monocytes % 7.9 Eosinophils % 1.1 D Basophils % 0.8 Nucleated RBC % 0 Sodium 135 L Potassium 3.7 Chloride 100 Carbon Dioxide 26 Anion Gap 9 BUN 6 L Creatinine 1.1 Creat Clearance w eGFR > 60 POC Glucometer 284 Random Glucose 114 H Calcium 8.2 L Active Medications Generic Name Dose Route Start Last Admin Trade Name Freq PRN Reason Stop Dose Admin Amlodipine Besylate 10 mg 06/14/18 17:00 06/16/18 10:04 Norvasc - PO 10 mg DAILY [facility]ENRY Administration Bisacodyl 20 mg 06/16/18 16:00 Dulcolax - PO 06/16/18 16:01 ONCE ONE Folic Acid 1 mg 06/15/18 14:15 06/16/18 10:05 Folic Acid - PO 1 mg DAILY HENRY Administration Lactated Ringer's 1,000 ml in 1,000 mls @ 100 mls/hr 06/15/18 14:15 06/16/18 00:52 Lactated Ringers Solution IV 100 mls/hr ASDIR [facility]ENRY Administration Insulin Aspart 1 vial 06/13/18 22:00 06/16/18 06:06 Novolog Vial Sliding Scale - SQ Not Given ACHS [facility]ENRY Protocol Lorazepam 0.5 mg 06/16/18 09:20 Ativan Injection - IVPUSH 06/17/18 09:19 Q6H PRN WITHDRAWAL(CONT SUBST) Pantoprazole Sodium 20 mg 06/16/18 10:00 06/16/18 10:05 Protonix - PO 20 mg DAILY [facility]ENRY Administration Thiamine HCl 100 mg 06/15/18 13:00 06/16/18 10:05 Vitamin B1 - PO 100 mg DAILY [facility]ENRY Administration ASSESSMENT/PLAN:67 yom with PMHx of HTN, DM, HLD, ETOH abuse admitted with hemetemesis/melena, anemia and ongoing ETOH abuse with AMS -Hemetemesis/melena, r/o Esophageal varices vs aclohol gastritis vs PUD, low suspicion for lower GI source Monitor vitals 'monitor intake/output repeat hb in am no active bleeding. started on clear liquid egd done today: we will follow a report. protonix changed to 20mg daily. pt will go for colonoscopy tomorrow; prepration orderd by gi continue iv fluid. -Acute vs acute on chronic anemia, suspect from above -DM bgm monitoring insulin sliding scale. -HTN continue amlodipine 10mg daily -ETOH abuse continue thiamine daily and folic acid -no signs of withdrawal detox consult appreciated; lorazepam prn. Pt agreed for inpatient rehab. Fluid lr 100 ml/hr electrolyte: hypomagnesemia: repeat in am nutrition: clear liquid. gi pro: on protonix 20 daily dvt pro: scd Visit type - Emergency Visit Emergency Visit: Yes ED Registration Date: 06/13/18 Care time: The patient presented to the Emergency Department on the above date and was hospitalized for further evaluation of their emergent condition. - New Patient This patient is new to me today: No - Critical Care Critical Care patient: No
--- NOTE | 2018-06-16 12:18 | PN ---
Teaching Attending Note Name of Resident: Johnny Fajardo ATTENDING PHYSICIAN STATEMENT I saw and evaluated the patient. I reviewed the resident's note and discussed the case with the resident. I agree with the resident's findings and plan as documented with exceptions below. SUBJECTIVE: patient seen and examined in endoscopy, no complaints, Agreeing to alcohol abstinence and resources for the same. OBJECTIVE: Vital Signs Period Temp Pulse Resp BP Sys/Colin Pulse Ox Last 24 Hr 97.2 F-99.5 F 74-90 16-20 100-133/50-68 98-100 Intake & Output 06/13/18 06/14/18 06/15/18 06/16/18 23:59 23:59 23:59 23:59 Intake Total 2465 3510 2150 Output Total 1600 200 Balance 2465 1910 1950 Weight 124 lb 124 lb 9 oz General: lying in stretcher in no acute distress Chest: CTAB, no rales or wheezing Abdomen;Soft, NT, ND extremities: no edema Home Medications Medication Instructions Recorded Amlodipine Besylate [Norvasc -] 10 mg PO DAILY 06/14/18 Glipizide [Glucotrol] 5 mg PO DAILY 06/14/18 Losartan Potassium [Cozaar -] 50 mg PO DAILY 06/14/18 Metformin HCl [Glucophage] 500 mg PO BIDAC 06/14/18 Simvastatin [Zocor -] 20 mg PO HS 06/14/18 Active Medications Amlodipine Besylate (Norvasc -) 10 mg PO DAILY [facility] Last Admin: 06/16/18 10:04 Dose: 10 mg Bisacodyl (Dulcolax -) 20 mg PO ONCE ONE Stop: 06/16/18 16:01 Folic Acid (Folic Acid -) 1 mg PO DAILY [facility] Last Admin: 06/16/18 10:05 Dose: 1 mg Lactated Ringer's (Lactated Ringers Solution) 1,000 ml in 1,000 mls @ 100 mls/ hr IV ASDIR [facility] Last Admin: 06/16/18 11:43 Dose: 100 mls/hr Insulin Aspart (Novolog Vial Sliding Scale -) 1 vial SQ ACHS [facility]; Protocol Last Admin: 06/16/18 11:38 Dose: 6 units Lorazepam (Ativan Injection -) 0.5 mg IVPUSH Q6H PRN PRN Reason: WITHDRAWAL(CONT SUBST) Stop: 06/17/18 09:19 Pantoprazole Sodium (Protonix -) 20 mg PO DAILY [facility] Last Admin: 06/16/18 10:05 Dose: 20 mg Thiamine HCl (Vitamin B1 -) 100 mg PO DAILY [facility] Last Admin: 06/16/18 10:05 Dose: 100 mg Laboratory Results - last 24 hr 06/15/18 06/15/18 06/16/18 16:31 21:09 05:39 WBC RBC Hgb Hct MCV MCH MCHC RDW Plt Count MPV Absolute Neuts (auto) Neutrophils % Lymphocytes % Monocytes % Eosinophils % Basophils % Nucleated RBC % Sodium Potassium Chloride Carbon Dioxide Anion Gap BUN Creatinine Creat Clearance w eGFR POC Glucometer 271 52 119 Random Glucose Calcium 06/16/18 06/16/18 06/16/18 06:00 06:00 11:08 WBC 10.3 H RBC 3.29 L Hgb 9.9 L Hct 28.7 L MCV 87.2 MCH 30.1 MCHC 34.5 RDW 16.2 H Plt Count 550 H MPV 6.9 L Absolute Neuts (auto) 7.0 Neutrophils % 68.5 Lymphocytes % 21.7 D Monocytes % 7.9 Eosinophils % 1.1 D Basophils % 0.8 Nucleated RBC % 0 Sodium 135 L Potassium 3.7 Chloride 100 Carbon Dioxide 26 Anion Gap 9 BUN 6 L Creatinine 1.1 Creat Clearance w eGFR > 60 POC Glucometer 284 Random Glucose 114 H Calcium 8.2 L ASSESSMENT AND PLAN: 67 yom with PMHx of HTN, DM, HLD, ETOH abuse admitted with hemetemesis/melena, anemia and ongoing ETOH abuse with AMS -Hemetemesis/melena, r/o Esophageal varices vs aclohol gastritis vs PUD, low suspicion for lower GI source -Acute vs acute on chronic anemia, suspect from above, associated alcohol related bone marrow suppression -DM -HTN -HLD -ETOH abuse -AMS, suspect encephalopathy from ETOH intoxication +/- underlying cognitive impairment from long standing alcohol use Plan: s/p 2 units PRBC, appropriate response. No episodes of hemetemsis/melena in house. H/h stable s/p EGD with reported no bleed concerns. Protonix drip d/ed. Protonix 20 mg po daily Plan for colonoscopy tomorrow, follow up. BGM,ISS, NPO Resumed amlodipine, hold losartan for now. Trend LFTs Detox consult noted, plan for detox rehab on d/c. No current evidence of alcohol withdrawal, monitor for now. DVTPPX with SCDs Dispo plan for d/c to detox rehab in 24 hours if colonoscopy with no acute concerns and disposition arranged. Plan discussed with patient in detail, all questions answered.
[2018-06-16 12:28] LABS: HBSAG SCREEN Negative (Negative); HEP A AB, IGM Negative (Negative); HEP B CORE AB, TOT Negative (Negative)
[2018-06-16] MEDS ORDERED: BISACODYL 5 MG TABLET.DR (FP) PO ONE (16:00)
--- NOTE | 2018-06-16 16:51 | ECHO ---
Name: ANAY BECK Exam:Adult Echocardiogram Study Date: 06/16/2018 01:20 PM Age: 67 yrs Reason For Study: Martín Height: 65 in Weight: 124 lb BSA: 1.6 m2 MMode/2D Measurements & Calculations IVSd: 1.2 cm Ao root diam: 2.9 cm LVIDd: 3.5 cm LA dimension: 3.5 cm LVIDs: 2.3 cm LVPWd: 1.0 cm EDV(Teich): 51.3 ml LVOT diam: 2.0 cm ESV(Teich): 17.2 ml LAV (MOD-bp): 26.0 ml Doppler Measurements & Calculations MV E max trae: 130.0 cm/sec MV A max trae: 135.6 cm/sec MV dec slope: 763.8 cm/sec2 MV E/A: 0.96 Ao V2 max: 298.6 cm/sec LV V1 max P.3 mmHg Ao max P.7 mmHg LV V1 mean P.8 mmHg Ao V2 mean: 217.0 cm/sec LV V1 max: 186.2 cm/sec Ao mean P.4 mmHg LV V1 mean: 141.5 cm/sec Ao V2 VTI: 64.9 cm LV V1 VTI: 42.9 cm SONIDO(I,D): 2.0 cm2 SONIDO(V,D): 1.9 cm2 MR max trae: 283.7 cm/sec SV(LVOT): 130.0 ml MR max P.2 mmHg TR max trae: 216.5 cm/sec Med Peak E' Trae: 7.1 cm/sec TR max P.8 mmHg Med E/e': 18.4 Lat Peak E' Trae: 5.2 cm/sec Lat E/e': 24.9 PI Vmax: 135.1 cm/sec Procedure A two-dimensional transthoracic echocardiogram with color flow and Doppler was performed. The patient was in normal sinus rhythm during the exam. Left Ventricle The left ventricle is normal in size. There is mild concentric left ventricular hypertrophy. Left judy tricular systolic function is normal. Ejection Fraction = 60%. Grade I diastolic dysfunction, (abnormal relaxa tion pattern). Right Ventricle The right ventricle is normal in size and function. Atria Normal left and right atrial size and function. Mitral Valve There is moderate mitral annular calcification. There is trace mitral regurgitation. Tricuspid Valve The tricuspid valve is not well visualized, but is grossly normal. No tricuspid regurgitation. There was insufficient TR detected to calculate RV systolic pressure. Aortic Valve There is moderate to severe aortic sclerosis.;. The aortic valve is trileaflet. Moderate valvular aor tic stenosis. Pulmonic Valve The pulmonic valve is not well visualized. Great Vessels The aortic root is normal size. Pericardium/Pleura There is no pericardial effusion. Interpretation Summary The left ventricle is normal in size. There is mild concentric left ventricular hypertrophy. Left ventricular systolic function is normal. Grade I diastolic dysfunction, (abnormal relaxation pattern). Normal left and right atrial size and function. There is moderate mitral annular calcification. Moderate valvular aortic stenosis. There was insufficient TR detected to calculate RV systolic pressure. MD Alberto Bran 06/16/2018 04:51 PM
[2018-06-16] MEDS ORDERED: PEG3350/SOD SULF,BICARB,CL/KCL 4,000 ML SOLN.RECON PO ONE (17:00)
[2018-06-17] MEDS: LACTATED RINGERS SOLUTION 1,000 ML/1,000 ML INFUS.BAG IV SCH ×2 (01:09→09:58)
[2018-06-17] MEDS: INSULIN SLIDING SCALE (NOVOLOG) 1 VIAL SQ SCH ×3 (06:40→17:22)
[2018-06-17 06:51] LABS: BASO % 0.5 % (0-2.0); EOS % 0.7 % (0-4.5); HEMATOCRIT 29.6 % (35.4-49); HEMOGLOBIN 10.3 GM/dL (11.7-16.9); LYMPH % 17.4 % (8-40); MCH 30.8 pg (25.7-33.7); MCHC 34.7 g/dl (32.0-35.9); MEAN CELL VOLUME 88.6 fl (80-96); MEAN PLT VOLUME 7.6 fl (7.5-11.1); MONO % 7.9 % (3.8-10.2); NEUT % 73.5 % (42.8-82.8); PLATELET COUNT 487 K/MM3 (134-434); RBC 3.34 M/mm3 (4.00-5.60); RDW 16.2 % (11.9-15.9); WHITE BLOOD COUNT 8.1 K/mm3 (4.0-10.0)
[2018-06-17 07:19] LABS: ANION GAP 11 MMOL/L (8-16); BLOOD UREA NITROGEN 5 mg/dL (7-18); CHLORIDE 104 mmol/L (98-107); CO2 23 mmol/L (21-32); CREATININE 0.9 mg/dL (0.55-1.3); GLUCOSE,RANDOM 84 mg/dL (74-106); MAGNESIUM 1.5 mg/dL (1.8-2.4); POTASSIUM 3.5 mmol/L (3.5-5.1); SODIUM 138 mmol/L (136-145)
[2018-06-17] MEDS ORDERED: MAGNESIUM SULF 50% (8.12 MEQ/2 ML-1 GM VIAL) IVPB ONE (08:00)
[2018-06-17] MEDS: amLODIPine BESYLATE 10 MG TABLET (FP) PO SCH (09:53)
[2018-06-17] MEDS: THIAMINE HCL 100 MG TABLET (FP) PO SCH (09:53)
[2018-06-17] MEDS: FOLIC ACID 1 MG TABLET (FP) PO SCH (09:53)
[2018-06-17] MEDS: PANTOPRAZOLE 20 MG TABLET (FP) PO SCH (09:53)
[2018-06-17 11:05] LABS: URINE APPEARANCE SLCLOUDY; URINE BILIRUBIN NEGATIVE (<2.0 mg/dL); URINE COLOR YELLOW; URINE GLUCOSE (UA) 1+ (NEGATIVE); URINE KETONE NEGATIVE (NEGATIVE); URINE LEUK ESTERASE TRACE (NEGATIVE); URINE NITRITE NEGATIVE (NEGATIVE); URINE PROTEIN NEGATIVE (NEGATIVE); URINE UROBILINOGEN NEGATIVE mg/dL (0.2-1.0)
[2018-06-17 11:20] LABS: URINE BACTERIA FEW /hpf (NONE SEEN)
--- NOTE | 2018-06-17 13:23 | PN ---
Progress Note (short form) - Note Progress Note: Colonoscopy performed today (see scanned endoscopy report for full details). 7 colon polyps seen and removed, largest approximately 10-12mm. Moderate amount of liquid greenish stool seen requiring aggressive irrigation, large lesions not seen however smaller or flat lesions could have been. No blood or obvious source of significant anemia found on this exam. -Recommend continue to monitor Hb and for evidence of bleeding -Follow up pathology results -Avoid NSAIDs x 5 days post polypectomy -Resume previous diet -Repeat colonoscopy in 1 year for surveillance due to prep and number of polyps seen, pending path. -Pending course, if further overt bleeding or drop in Hb, or if evidence of iron deficiency, could consider repeat EGD/push enteroscopy vs possible capsule endoscopy. -Discussed with medicine resident.
--- NOTE | 2018-06-17 14:32 | DS ---
Physical Exam: SUBJECTIVE: Patient seen and examined no new course overnight. no bleeding. no vomiting OBJECTIVE: Vital Signs Period Temp Pulse Resp BP Sys/Colin Pulse Ox Last 24 Hr 97.4 F-98.0 F 69-83 16-18 98-136/48-73 98-100 PHYSICAL EXAM GENERAL: Awake, alert, disoriented to date, NAD HEENT: PERRLA, EOMI, NECK: Normal range of motion, supple without lymphadenopathy, JVD, or masses. LUNGS: CTA b/l HEART: s1s2 normal, holosystlic murmur ABDOMEN: , soft, mildly distended, non-tender, BS + EXTREMITIES: 2+ pulses, warm, well-perfused. No calf tenderness. No peripheral edema. 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 PSYCHIATRIC: awake, alert SKIN: Warm, dry, normal turgor LABS Laboratory Results - last 24 hr 06/13/18 06/16/18 06/16/18 16:42 16:36 21:26 WBC RBC Hgb Hct MCV MCH MCHC RDW Plt Count MPV Absolute Neuts (auto) Neutrophils % Lymphocytes % Monocytes % Eosinophils % Basophils % Nucleated RBC % Sodium Potassium Chloride Carbon Dioxide Anion Gap BUN Creatinine Creat Clearance w eGFR POC Glucometer 78 257 Random Glucose Calcium Magnesium Urine Color Urine Appearance Urine pH Ur Specific Brohman Urine Protein Urine Glucose (UA) Urine Ketones Urine Blood Urine Nitrite Urine Bilirubin Urine Urobilinogen Ur Leukocyte Esterase Urine WBC (Auto) Urine RBC (Auto) Urine Bacteria Blood Type A POSITIVE Antibody Screen Negative Crossmatch See Detail 06/17/18 06/17/18 06/17/18 05:40 05:40 06:03 WBC 8.1 RBC 3.34 L Hgb 10.3 L Hct 29.6 L MCV 88.6 MCH 30.8 MCHC 34.7 RDW 16.2 H Plt Count 487 H MPV 7.6 D Absolute Neuts (auto) 5.9 Neutrophils % 73.5 Lymphocytes % 17.4 Monocytes % 7.9 Eosinophils % 0.7 Basophils % 0.5 Nucleated RBC % 0 Sodium 138 Potassium 3.5 Chloride 104 Carbon Dioxide 23 Anion Gap 11 BUN 5 L Creatinine 0.9 Creat Clearance w eGFR > 60 POC Glucometer 93 Random Glucose 84 Calcium 8.0 L Magnesium 1.5 L Urine Color Urine Appearance Urine pH Ur Specific Brohman Urine Protein Urine Glucose (UA) Urine Ketones Urine Blood Urine Nitrite Urine Bilirubin Urine Urobilinogen Ur Leukocyte Esterase Urine WBC (Auto) Urine RBC (Auto) Urine Bacteria Blood Type Antibody Screen Crossmatch 06/17/18 06/17/18 09:25 14:02 WBC RBC Hgb Hct MCV MCH MCHC RDW Plt Count MPV Absolute Neuts (auto) Neutrophils % Lymphocytes % Monocytes % Eosinophils % Basophils % Nucleated RBC % Sodium Potassium Chloride Carbon Dioxide Anion Gap BUN Creatinine Creat Clearance w eGFR POC Glucometer 108 Random Glucose Calcium Magnesium Urine Color Yellow Urine Appearance Slcloudy Urine pH 8.0 D Ur Specific Brohman 1.006 L Urine Protein Negative Urine Glucose (UA) 1+ H Urine Ketones Negative Urine Blood Negative Urine Nitrite Negative Urine Bilirubin Negative Urine Urobilinogen Negative Ur Leukocyte Esterase Trace Urine WBC (Auto) 3 Urine RBC (Auto) 1 Urine Bacteria Few Blood Type Antibody Screen Crossmatch HOSPITAL COURSE: Patient is a 67 y/o M w/ PMHx EtOH abuse, HTN, HLD, DM p/w dark red hematemesis ~5 episodes per day x 3 days a/w generalized weakness. Denies abdominal pain, diarrhea, melena, hematochezia, chest pain, SOB, palpitations. Denies headache presently but did c/o headache on presentation. Per and daughter at bedside, he drinks 1/2 to 1 bottle of hard liquor per day. EGD/colonoscopy Hx is unknown. Has had tremors when abstinent in the past, no tremors thus far during current presentation. Per and daughter, patient' s mentation represents an acute decline from baseline. On presentation was hemodynamically stable though hypertensive. Hb was 6.5, Cr 1.7 (no known prior) , LFTs mildly elevated, lipase 1301. 2U PRBCs ordered in ED, one push of PTX given. Dr. Sadler was consulted for GI and requested PTX gtt. NCHCT negative. Examination and investigations were done. GI was consulted. You 2 units of my[facility] and was started on protonix drip. Upper gi endoscopy was done which showed mild gastritis in antrum and 2 ectasia in dudenum. Colonoscopy was also done in hospital and 7 colon polyps seen and removed. No episodes of bleeding in hospital. Pt maintained his Hb in hospital. Now pt is accepting orally and is passing flatus. Has no pain abdomen. Pt is DC is stable condition. Pt has been advised to follow up with GI to discuss the pathology results. Follow up with your primary dooctor with in one week Follow up with gastroentrologist Dr. Hernández with in one week. You need to discuss regarding the pathology results of your polys. you also need o get repeat colonoscopy after one year. Drink plenty of liquid Please quit drinking alcohol. We have stopped your one of the blood pressure pill losartan because of samuel and borderline BP. Please monitor your blood pressure regularly and make a log. If BP starts going up please contact your doctor. You need a outpatient workup for your anemia We have started you on thiamine and folic acid. take one pill daily We have also started you on pantoprazole. Take one pill daily in morning. Avoid motrin, naproxen and other NSAID If you develop, nausea vomiting, chest pain, shortness of breath. Bleeding in stool or any other new symptom please contact your doctor or go to [facility] Date of Admission:06/13/18 Date of Discharge: 06/17/18 Minutes to complete discharge: 45 Discharge Summary Reason For Visit: ANEMIA,HEMATEMESIS Current Active Problems Anemia (Acute) Hematemesis (Acute) Condition: Stable - Instructions Diet, Activity, Other Instructions: Follow up with your primary dooctor with in one week Follow up with gastroentrologist Dr. Hernández with in one week. You need to discuss regarding the pathology results of your polys. you also need o get repeat colonoscopy after one year. Drink plenty of liquid Please quit drinking alcohol. We have stopped your one of the blood pressure pill losartan because of samuel and borderline BP. Please monitor your blood pressure regularly and make a log. If BP starts going up please contact your doctor. You need a outpatient workup for your anemia We have started you on thiamine and folic acid. take one pill daily We have also started you on pantoprazole. Take one pill daily in morning. Avoid motrin, naproxen and other NSAID If you develop, nausea vomiting, chest pain, shortness of breath. Bleeding in stool or any other new symptom please contact your doctor or go to hospital. Referrals: Celine Fitzgerald MD [Primary Care Provider] - 1 Week Jcaob Hernández DO [Staff Physician] - 1 Week Disposition: [facility] FACILITY - Home Medications Comprehensive Discharge Medication List: Ambulatory Orders Amlodipine Besylate [Norvasc -] 10 mg PO DAILY 06/14/18 Glipizide [Glucotrol] 5 mg PO DAILY 06/14/18 Metformin HCl [Glucophage] 500 mg PO BIDAC 06/14/18 Simvastatin [Zocor -] 20 mg PO HS 06/14/18 Amlodipine Besylate [Norvasc -] 10 mg PO DAILY tablet 06/17/18 Folic Acid - 1 mg PO DAILY #30 tablet 06/17/18 Pantoprazole Sodium [Protonix -] 20 mg PO DAILY #30 tablet.ec 06/17/18 Thiamine HCl [Vitamin B1 -] 100 mg PO DAILY #30 tablet 06/17/18 This patient is new to me today: No Emergency Visit: Yes ED Registration Date: 06/13/18 Care time: The patient presented to the Emergency Department on the above date and was hospitalized for further evaluation of their emergent condition. Critical Care patient: No - Discharge Referral Referred to [facility] Med P.C.: No
[2018-06-17 14:50] VITALS: BP 107/55; PULSE 70; TEMP 97.3
--- NOTE | 2018-06-17 14:52 | PN ---
Teaching Attending Note Name of Resident: Johnny Fajardo ATTENDING PHYSICIAN STATEMENT I saw and evaluated the patient. I reviewed the resident's note and discussed the case with the resident. I agree with the resident's findings and plan as documented. SUBJECTIVE: Mr Ayala is without complaint. No cp, sob, n/v. OBJECTIVE: Last Vital Signs Temp Pulse Resp BP Pulse Ox 36.6 C 78 18 119/60 98 06/17/18 12:54 06/17/18 13:37 06/17/18 13:37 06/17/18 13:37 06/17/18 13:37 Gen: nad Pulm: ctab w/o w/r/r CV: rrr w/o m/r/g Abd: +bs, s/nt/nd Ext: no c/c/e CBC, BMP 06/17/18 05:40 06/17/18 05:40 ASSESSMENT AND PLAN: -s/p colonoscopy, no source of bleeding -EGD also normal -tolerating diet -H/H stable -safe for discharge to rehab for alcohol abuse Problem List - Problems (1) Anemia Code(s): D64.9 - ANEMIA, UNSPECIFIED Qualifiers: Anemia type: other cause Other causes of anemia: acute posthemorrhagic Qualified Code(s): D62 - Acute posthemorrhagic anemia (2) Hematemesis Code(s): K92.0 - HEMATEMESIS Qualifiers: Nausea presence: with nausea Qualified Code(s): K92.0 - Hematemesis (3) Diabetes Code(s): E11.9 - TYPE 2 DIABETES MELLITUS WITHOUT COMPLICATIONS (4) HTN (hypertension) Code(s): I10 - ESSENTIAL (PRIMARY) HYPERTENSION (5) Alcohol abuse Code(s): F10.10 - ALCOHOL ABUSE, UNCOMPLICATED
--- NOTE | 2018-06-18 16:15 | PATH ---
Surgical Pathology Report Patient Name: ANAY BECK [facility]. Rec. #: [id number] /Age/Gender: 1950 (Age: 67) / M Account: [id number] Location: [address] [place] [address]/[facility] Taken: 06/12/2018 Received: 06/16/2018 Reported: 06/18/2018 Physicians: Lemuel Dooley M.D. Specimen(s) Received BX ANGULARIS AND BODY Clinical History GI bleed Postoperative diagnosis: Gastritis Final Diagnosis STOMACH, ANGULARIS AND BODY, BIOPSY: GASTRIC BODY MUCOSA WITH MILD CHRONIC GASTRITIS. IMMUNOHISTOCHEMICAL STAIN FOR H. PYLORI IS NEGATIVE. Electronically Signed Samantha Calhoun M.D. Gross Description Received in formalin, labeled "biopsy angularis and body" are 3 jacobo, irregular portions of soft tissue ranging from 0.1-0.4 cm. in greatest dimension. The specimens are submitted in toto in one cassette. 06/16/2018 [facility]06/16/2018
--- NOTE | 2018-06-18 16:39 | PATH ---
Surgical Pathology Report Patient Name: ANAY BECK [facility]. Rec. #: [id number] /Age/Gender: 1950 (Age: 67) / M Account: [id number] Location: [address] [place] [address] Taken: 06/17/2018 Received: 06/17/2018 Reported: 06/18/2018 Physicians: MD Kobi Avila M.D. Specimen(s) Received A: POLYP RIGHT COLON B: POLYPS PROXIMAL TRANSVERSE COLON C: POLYP PROXIMAL TRANSVERSE COLON D: POLYP LEFT COLON E: POLYP AT 25 CM. Clinical History GI bleed Postoperative diagnosis: Colon polyps Final Diagnosis A. COLON, RIGHT, POLYP, BIOPSY: HYPERPLASTIC POLYP. B. PROXIMAL TRANSVERSE COLON, POLYPS, POLYPECTOMY: HYPERPLASTIC POLYP(S). C. PROXIMAL TRANSVERSE COLON, POLYPECTOMY: TUBULAR ADENOMA. D. COLON, LEFT, POLYP, POLYPECTOMY: TUBULAR ADENOMA. E. POLYP, 25 CM, POLYPECTOMY: TUBULAR ADENOMA. Electronically Signed Samantha Calhoun M.D. Gross Description A. Received in formalin, labeled "polyp right colon" are 2 jacobo, irregular portions of soft tissue measuring 0.4 and 0.5 cm. in greatest dimension. The specimens are submitted in toto in one cassette. B. Received in formalin, labeled "polyps proximal transverse colon" is a 1.0 x 0.8 x 0.2 cm aggregate of multiple jacoob, irregular to polypoid portions of soft tissue. The formalin is filtered and the specimen is entirely submitted in one cassette. C. Received in formalin labeled "polyp proximal transverse colon," is a 0.9 x 0.7 x 0.4 cm jacobo, polypoid portion of soft tissue. The specimen is bisected and entirely submitted in one cassette. D. Received in formalin, labeled "polyp left colon" is a jacobo, irregular portion of soft tissue measuring 1.1 cm. in greatest dimension. The specimen is submitted in toto in one cassette. E. Received in formalin labeled "polyp at 25," is a 1.0 x 0.8 x 0.5 cm jacobo, polypoid portion of soft tissue. The specimen is bisected and entirely submitted in one cassette. 06/17/2018 [facility]/17/2018
== END 2018-06-17 18:30 | disposition other institution (70) | DRG 378 ==
LOC: JER 13:53 → JERBED 19:48 → J5S 23:20
PROVIDERS: ADMIT Internal Medicine; ATTEND Internal Medicine
PROC: 0DB68ZX Excision of Stomach, Via Natural or Artificial Opening Endoscopic, Diagnostic (ICD-10-PCS; 2018-06-12)
PROC: 30233N1 Transfusion of Nonautologous Red Blood Cells into Peripheral Vein, Percutaneous Approach (ICD-10-PCS; 2018-06-13)
PROC: HZ2ZZZZ Detoxification Services for Substance Abuse Treatment (ICD-10-PCS; 2018-06-13)
PROC: 0DBL8ZZ Excision of Transverse Colon, Via Natural or Artificial Opening Endoscopic (ICD-10-PCS; principal; 2018-06-17 11:30)
DX: K92.2 Gastrointestinal hemorrhage, unspecified (principal); N17.9 Acute kidney failure, unspecified; D62 Acute posthemorrhagic anemia; F10.239 Alcohol dependence with withdrawal, unspecified; I10 Essential (primary) hypertension; E78.5 Hyperlipidemia, unspecified; E11.9 Type 2 diabetes mellitus without complications; K63.5 Polyp of colon; K29.50 Unspecified chronic gastritis without bleeding; E83.42 Hypomagnesemia
CPT/HCPCS: 36415; 36430; 36511; 70450-TC; 71045-TC-FY; 74176-TC; 80048; 80053; 80076; 80307; 81003; 81015; 82550; 82962; 83690; 83735; 84100; 84484; 85025; 85027; 85610; 85730; 86704; 86706; 86708; 86850; 86900; 86901; 86922; 87340; 87522; 88305-TC; 88342-TC; 93005; 93010; 93306-TC; 99284-25; J7030; P9038; P9058

== ENCOUNTER 2018-08-18 11:15 | Inpatient (IN) | payer OTHER ==
[2018-08-18 12:31] LABS: BASO % 0.3 % (0-2.0); HEMATOCRIT 33.5 % (35.4-49); HEMOGLOBIN 11.4 GM/dL (11.7-16.9); LYMPH % 15.4 % (8-40); MCH 30.4 pg (25.7-33.7); MCHC 34.2 g/dl (32.0-35.9); MONO % 3.8 % (3.8-10.2); NEUT % 80.5 % (42.8-82.8); PLATELET COUNT 436 K/MM3 (134-434); RBC 3.77 M/mm3 (4.00-5.60); RDW 20.2 % (11.9-15.9); WHITE BLOOD COUNT 9.6 K/mm3 (4.0-10.0)
--- NOTE | 2018-08-18 12:51 | PDOC ---
History of Present Illness - General Chief Complaint: Coffee Ground Emesis Stated Complaint: Vomiting Blood Time Seen by Provider: 08/18/18 12:17 History Source: Patient Exam Limitations: Intoxication - History of Present Illness Initial Comments: 08/18/18 12:45 68 /o male with PMH of ETOH abuse, HTN, HLD, DM presents to the ED from home after having multiple episodes of coffee ground emesis according to his , who is not present with him at this moment. Of note, patient was here back in februrary with the same complaints underwent an endoscopy which showed gastritis and vascular ectasias in the duodenum, he was discharged with GI follow up however he never followed through. He is a heavy drinker; drinks around 1 bottle of vodka a day- his last drink was yesterday he claims (drank a bottle of vodka) He endorses to having multiple episodes of vomiting however he denies any blood being present in the vomit. He denies any recent travel, systemic illnesses or any sick contacts. He denies any chest pains shortness of breath nausea or vomiting. Timing/Duration: unsure Severity: mild Associated Symptoms: reports: nausea/vomiting. denies: chest pain, fever/chills Past History - Travel Traveled outside of the country in the last 30 days: No Close contact w/someone who was outside of country & ill: No - Past Medical History Allergies/Adverse Reactions: Allergies Allergy/AdvReac Type Severity Reaction Status Date / Time Penicillins Allergy Unknown Verified 08/18/18 11:32 Home Medications: Ambulatory Orders Amlodipine Besylate [Norvasc -] 10 mg PO DAILY 06/14/18 Glipizide [Glucotrol] 5 mg PO DAILY 06/14/18 Metformin HCl [Glucophage] 500 mg PO BIDAC 06/14/18 Simvastatin [Zocor -] 20 mg PO HS 06/14/18 Amlodipine Besylate [Norvasc -] 10 mg PO DAILY tablet 06/17/18 Folic Acid - 1 mg PO DAILY #30 tablet 06/17/18 Pantoprazole Sodium [Protonix -] 20 mg PO DAILY #30 tablet.ec 06/17/18 Thiamine HCl [Vitamin B1 -] 100 mg PO DAILY #30 tablet 06/17/18 COPD: No Diabetes: Yes GI Disorders: Yes (gastritis ) HTN: Yes Hypercholesterolemia: Yes - Family Disease History Family Disease History: Diabetes: Mother, Heart Disease: Father - Suicide/Smoking/Psychosocial Hx Smoking History: Current every day smoker Have you smoked in the past 12 months: Yes Number of Cigarettes Smoked Daily: 4 Information on smoking cessation initiated: No 'Breaking Loose' booklet given: 09/26/17 Hx Alcohol Use: Yes (drinks 1 bottle of vodka daily) Drug/Substance Use Hx: No Substance Use Type: None Hx Substance Use Treatment: No Review of Systems - Review of Systems Able to Perform ROS?: Yes Is the patient limited [place] proficient: No Constitutional: No: Diaphoresis HEENTM: No: Blurred Vision Respiratory: No: Cough, Shortness of Breath Cardiac (ROS): No: Chest Pain ABD/GI: Yes: Vomiting : No: Dysuria, Frequency Musculoskeletal: No: Muscle Weakness Neurological: No: Headache *Physical Exam - Vital Signs Last Vital Signs Temp Pulse Resp BP Pulse Ox 98.3 F 91 H 18 145/62 98 08/18/18 11:33 08/18/18 12:19 08/18/18 12:19 08/18/18 12:19 08/18/18 12:19 - Physical Exam General Appearance: Yes: Alcohol on Breath Neck: negative: Normal Thyroid Respiratory/Chest: positive: Lungs Clear, Normal Breath Sounds Cardiovascular: positive: Regular Rhythm, Regular Rate, S1, S2 Gastrointestinal/Abdominal: positive: Normal Bowel Sounds Rectal Exam: positive: normal rectal tone, other (no masses; no anal fissures; dark brown stool present in rectal vault). negative: hemorrhoids Musculoskeletal: negative: CVA Tenderness Neurologic: positive: Disoriented (oriented to self and place not time ) ED Treatment Course - LABORATORY CBC & Chemistry Diagram: 08/18/18 11:40 08/18/18 11:40 - ADDITIONAL ORDERS Additional order review: 08/18/18 11:40 RBC 3.77 L MCV 89.0 MCHC 34.2 RDW 20.2 H MPV 8.0 Neutrophils % 80.5 Lymphocytes % 15.4 Monocytes % 3.8 Eosinophils % 0.0 D Basophils % 0.3 Medical Decision Making - Medical Decision Making 08/18/18 12:53 cbc/cmp/lipase/ CXR rectal exam US protonix; zofran *DC/Admit/Observation/Transfer Diagnosis at time of Disposition: Alcohol abuse, Hematemesis, Acute kidney injury - Discharge Dispostion Condition at time of disposition: Stable Decision to Admit order: Yes - Referrals Referrals: Celine Fitzgerald MD [Primary Care Provider] - - Patient Instructions - Post Discharge Activity - Attestations Physician Attestion: 08/18/18 14:06 Enid Phillips
[2018-08-18 12:52] LABS: INR 0.85 (0.83-1.09)
[2018-08-18] MEDS ORDERED: ONDANSETRON 4 MG/2 ML VIAL IVPUSH ONE (12:54)
[2018-08-18] MEDS ORDERED: PANTOPRAZOLE SODIUM 40 MG VIAL IVPUSH ONE (12:54)
[2018-08-18] MEDS ORDERED: ONDANSETRON 4 MG/2 ML VIAL ONE (12:58)
[2018-08-18] MEDS ORDERED: PANTOPRAZOLE SODIUM 40 MG/100 ML BAG IVPB ONE (12:58)
[2018-08-18 13:07] LABS: ALBUMIN 4.1 g/dl (3.4-5.0); ALK PHOS 144 U/L (45-117); ANION GAP 20 MMOL/L (8-16); BILIRUBIN,TOTAL 0.4 mg/dL (0.2-1); BLOOD UREA NITROGEN 48 mg/dL (7-18); CALCIUM 8.4 mg/dL (8.5-10.1); CHLORIDE 96 mmol/L (98-107); CO2 18 mmol/L (21-32); GLUCOSE,RANDOM 166 mg/dL (74-106); LIPASE 252 U/L (73-393); POTASSIUM 4.8 mmol/L (3.5-5.1); SGOT/AST 26 U/L (15-37); SGPT/ALT 55 U/L (13-61); SODIUM 135 mmol/L (136-145); TOT PROT 7.9 g/dl (6.4-8.2)
[2018-08-18] MEDS ORDERED: FOLIC ACID INJECTION - 1 MG, THIAMINE HCL 100 MG, MULTIVIT INJECTION ADULT 10 ML in SOD... IVPB ONE ×2 (13:16→16:00)
--- NOTE | 2018-08-18 13:21 | PDOC ---
Attending Attestation - Resident Resident Name: Enid Phillips - ED Attending Attestation I have performed the following: I have examined & evaluated the patient, The case was reviewed & discussed with the resident, I agree w/resident's findings & plan, Exceptions are as noted - HPI HPI: 08/18/18 13:16 68 M with h/o ETOH abuse, HTN, HLD, DM, presenting to ED with possible hematemesis. Pt states that he drank a pint of vodka last night, which he does on a daily basis. He subsequently had several episodes of vomiting. Per EMS report, told them that it was dark red. However, pt denies seeing any blood. He endorses epigastric abdominal pain. Denies F/C. Denies diarrhea/ constipation. No dark tarry stools or BRBPR. - Physicial Exam PE: 08/18/18 13:18 "GENERAL: Awake, alert, in no acute distress. HEAD: No signs of trauma EYES: PERRLA, EOMI, sclera anicteric, conjunctiva clear ENT: Auricles normal inspection, hearing grossly normal, nares patent, oropharynx clear without exudates. Moist mucosa NECK: Nontender, no stepoffs, Normal ROM, supple, no lymphadenopathy, JVD, or masses LUNGS: Breath sounds equal, clear to auscultation bilaterally. No wheezes, and no crackles HEART: Regular rate and rhythm, normal S1 and S2, no murmurs, rubs or gallops ABDOMEN: + RUQ TTP, normoactive bowel sounds. No guarding, no rebound. No masses EXTREMITIES: Normal range of motion, no edema. No clubbing or cyanosis. No cords, erythema, or tenderness NEUROLOGICAL: Cranial nerves II through XII intact. 5/5 strength and sensation in all extremities, Normal speech, normal gait, normal cerebellar function SKIN: Warm, Dry, normal turgor, no rashes or lesions noted. - Medical Decision Making 08/18/18 13:19 68 M with N+V, possible hematemesis. Pt also with RUQ abdominal pain. Likely 2/ 2 alcoholic gastritis. Will obtain US to r/o gallbladder/liver pathology. - Labs, lipase - RUQ sono - IVF, zofran, protonix
--- NOTE | 2018-08-18 13:51 | EKG ---
Test Reason : Blood Pressure : / mmHG Vent. Rate : 084 BPM Atrial Rate : 084 BPM P-R Int : 136 ms QRS Dur : 080 ms QT Int : 402 ms P-R-T Axes : 066 068 077 degrees QTc Int : 475 ms NORMAL SINUS RHYTHM NONSPECIFIC ST ABNORMALITY ABNORMAL ECG WHEN COMPARED WITH ECG OF 13-JUN-2018 17:19, NO SIGNIFICANT CHANGE WAS FOUND Confirmed by Dnonell Gonzalez MD ([id number]) on 08/18/2018 1:51:42 PM Referred By: Confirmed By:Donnell Gonzalez MD
[2018-08-18] MEDS ORDERED: KETOROLAC TROMETHAMINE 15 MG/ML VIAL ONE (14:07)
[2018-08-18] MEDS ORDERED: chlordiazePOXIDE 5 MG CAPSULE PO PRN (14:59)
[2018-08-18] MEDS ORDERED: ONDANSETRON 4 MG/2 ML VIAL IVPB PRN (15:06)
--- NOTE | 2018-08-18 15:09 | HP ---
CHIEF COMPLAINT: hematemesis PCP: Dr Fitzgerald HISTORY OF PRESENT ILLNESS: Patient is a 67 y/o M w/ PMHx EtOH abuse, HTN, HLD, DM presented with dark red hematemesis 3-5 episodes since yesterday. He denies abdominal pain, diarrhea, melena, hematochezia, chest pain, SOB, palpitations. He drinks 1 bottle of hard liquor per day, last drink was 2 days ago. He was hospitalized in [facility] in May 2018 for hematemesis, had EGD positive for gastritis in antrum and ectasia in dueodenum, Colonoscopy with 7 polyps that were removed. He was also transfused at that time. On presentation today he is hemodynamicaly stable though hypertensive. Hb is 11.5, found to have ADEEL., normal lipase. The patient denies tremors, visual hallucinations, no more episodes of vomiting, nausea, fever, chills. ER course was notable for: (1)Hgn 11.5 (2)Zofran (3)Banana bag PAST MEDICAL HISTORY: as above PAST SURGICAL HISTORY: none Social History: Smoking:yes 10 cigarettes/day Alcohol:yes, everyday Drugs: no Family History: n/a Allergies Penicillins Allergy (Unknown, Verified 08/18/18 11:32) HOME MEDICATIONS: Home Medications Medication Instructions Recorded Amlodipine Besylate [Norvasc -] 10 mg PO DAILY 06/14/18 Glipizide [Glucotrol] 5 mg PO DAILY 06/14/18 Metformin HCl [Glucophage] 500 mg PO BIDAC 06/14/18 Simvastatin [Zocor -] 20 mg PO HS 06/14/18 Amlodipine Besylate [Norvasc -] 10 mg PO DAILY tablet 06/17/18 Folic Acid - 1 mg PO DAILY #30 tablet 06/17/18 Pantoprazole Sodium [Protonix -] 20 mg PO DAILY #30 tablet.ec 06/17/18 Thiamine HCl [Vitamin B1 -] 100 mg PO DAILY #30 tablet 06/17/18 REVIEW OF SYSTEMS CONSTITUTIONAL: Absent: fever, chills, diaphoresis, generalized weakness, malaise, loss of appetite, weight change HEENT: Absent: rhinorrhea, nasal congestion, throat pain, visual changes CARDIOVASCULAR: Absent: chest pain, syncope, palpitations, irregular heart rate, lightheadedness , peripheral edema RESPIRATORY: Absent: cough, shortness of breath, dyspnea with exertion, orthopnea, wheezing, stridor, hemoptysis GASTROINTESTINAL:hematochezia Absent: abdominal pain, abdominal distension, nausea, vomiting, diarrhea, constipation, melena GENITOURINARY: Absent: dysuria, frequency, urgency, hesitancy, hematuria, flank pain, genital pain HEMATOLOGIC/IMMUNOLOGIC: Absent: easy bleeding, easy bruising ENDOCRINE: Absent: unexplained weight gain, unexplained weight loss NEUROLOGIC: Absent: headache, focal weakness or paresthesias, dizziness, unsteady gait PSYCHIATRIC: Absent: anxiety, depression PHYSICAL EXAMINATION Vital Signs - 24 hr 08/18/18 08/18/18 11:33 12:19 Temperature 98.3 F Pulse Rate 86 Pulse Rate [ 91 H Apical] Respiratory 20 18 Rate Blood Pressure 142/62 Blood Pressure 145/62 [Right Arm] O2 Sat by Pulse 98 98 Oximetry (%) GENERAL: Awake, in no acute distress. HEAD: Normal with no signs of trauma. EYES: Extraocular movements intact, sclera anicteric, conjunctiva clear. EARS, NOSE, THROAT: Oropharynx clear without exudates. Moist mucous membranes. NECK: Normal range of motion, supple without lymphadenopathy, JVD, or masses. LUNGS: Breath sounds equal, clear to auscultation bilaterally. No wheezes, and no crackles. No accessory muscle use. HEART: Regular rate and rhythm, normal S1 and S2, holosystolic murmur over apex , rub or gallop. ABDOMEN: Soft, nontender, not distended, +BS, no guarding, no masses, no fluid wave. MUSCULOSKELETAL: Normal range of motion at all joints. No bony deformities or tenderness. UPPER EXTREMITIES: No peripheral edema. LOWER EXTREMITIES: No peripheral edema. NEUROLOGICAL: Non focal, AAOx3, no tremor. PSYCHIATRIC: Cooperative, asking for water. SKIN: Warm, dry, normal turgor, no rashes or lesions noted. Laboratory Results - last 24 hr 08/18/18 08/18/18 08/18/18 11:40 11:40 11:49 WBC 9.6 RBC 3.77 L Hgb 11.4 L Hct 33.5 L MCV 89.0 MCH 30.4 MCHC 34.2 RDW 20.2 H Plt Count 436 H MPV 8.0 Absolute Neuts (auto) 7.7 Neutrophils % 80.5 Lymphocytes % 15.4 Monocytes % 3.8 Eosinophils % 0.0 D Basophils % 0.3 Nucleated RBC % 0 PT with INR 10.00 INR 0.85 Sodium 135 L Potassium 4.8 Chloride 96 L Carbon Dioxide 18 L Anion Gap 20 H BUN 48 H Creatinine 2.0 H Creat Clearance w eGFR 33.49 Random Glucose 166 H Calcium 8.4 L Total Bilirubin 0.4 AST 26 ALT 55 Alkaline Phosphatase 144 H Creatine Kinase 49 Troponin I < 0.02 Total Protein 7.9 Albumin 4.1 Lipase 252 Stool Occult Blood Blood Type Antibody Screen 08/18/18 08/18/18 11:58 12:44 WBC RBC Hgb Hct MCV MCH MCHC RDW Plt Count MPV Absolute Neuts (auto) Neutrophils % Lymphocytes % Monocytes % Eosinophils % Basophils % Nucleated RBC % PT with INR INR Sodium Potassium Chloride Carbon Dioxide Anion Gap BUN Creatinine Creat Clearance w eGFR Random Glucose Calcium Total Bilirubin AST ALT Alkaline Phosphatase Creatine Kinase Troponin I Total Protein Albumin Lipase Stool Occult Blood Negative Blood Type A POSITIVE Antibody Screen Negative ASSESSMENT/PLAN: Patient is a 67 y/o M w/ PMHx EtOH abuse, HTN, HLD, DM presented with dark red hematemesis 3-5 episodes since yesterday. Hematemesis: -likely due to gastritis in light of alcohol abuse -cont Protonix 40 mg IV BID -Zofran PRN -continue Thiamine PO -NPO -LR @ 125 EtOH abuse -CIWA score ~1 -negative blood EtOH on presentation -monitor for withdrawal signs/symptoms, Librium protocol started, last drink 2 days ago -cont fluids LR ADEEL: -Cr 2.0,m above baseline -will continue hydration overnight -no imaging for now HTN -cont home medications DMII -BGM ACHS -SSI ACHS FEN -LR @ 125 -monitor and correct electrolytes -strictly NPO PPx -DVT: mechanical only, no pharmacologic AC -GI: PTX gtt Full code dispo med surg observation Problem List - Problem (1) Acute kidney injury Code(s): N17.9 - ACUTE KIDNEY FAILURE, UNSPECIFIED (2) Alcohol abuse Code(s): F10.10 - ALCOHOL ABUSE, UNCOMPLICATED (3) Hematemesis Code(s): K92.0 - HEMATEMESIS Qualifiers: (4) Anemia Code(s): D64.9 - ANEMIA, UNSPECIFIED Qualifiers: Anemia type: other cause Other causes of anemia: acute posthemorrhagic Qualified Code(s): D62 - Acute posthemorrhagic anemia (5) Diabetes Code(s): E11.9 - TYPE 2 DIABETES MELLITUS WITHOUT COMPLICATIONS (6) HTN (hypertension) Code(s): I10 - ESSENTIAL (PRIMARY) HYPERTENSION (7) Head injury, acute Code(s): S09.90XA - UNSPECIFIED INJURY OF HEAD, INITIAL ENCOUNTER (8) Laceration Code(s): UHB5771 - (9) Laceration of scalp Code(s): S01.01XA - LACERATION WITHOUT FOREIGN BODY OF SCALP, INITIAL ENCOUNTER (10) Leg swelling Code(s): M79.89 - OTHER SPECIFIED SOFT TISSUE DISORDERS Visit type - Emergency Visit Emergency Visit: Yes ED Registration Date: 08/18/18 Care time: The patient presented to the Emergency Department on the above date and was hospitalized for further evaluation of their emergent condition. - New Patient This patient is new to me today: Yes Date on this admission: 08/18/18 - Critical Care Critical Care patient: No
[2018-08-18] MEDS: LACTATED RINGERS SOLUTION 1,000 ML IV SCH (15:24)
[2018-08-18 16:05] VITALS: BMI 23.0
[2018-08-18] MEDS: THIAMINE HCL 200 MG/2 ML VIAL IVPB SCH (16:45)
[2018-08-18] MEDS: INSULIN SLIDING SCALE (NOVOLOG) 1 VIAL SQ SCH ×2 (17:02→22:48)
--- NOTE | 2018-08-18 17:06 | PN ---
Teaching Attending Note Name of Resident: Jailyn Alvarez ATTENDING PHYSICIAN STATEMENT I saw and evaluated the patient. I reviewed the resident's note and discussed the case with the resident. I agree with the resident's findings and plan as documented. SUBJECTIVE: C/O epigastric pain nause and coffee ground vomiting OBJECTIVE: Vital Signs Temperature 98.6 F 08/18/18 15:00 Pulse Rate 88 08/18/18 15:00 Respiratory Rate 18 08/18/18 15:00 Blood Pressure 108/44 L 08/18/18 15:00 O2 Sat by Pulse Oximetry (%) 98 08/18/18 12:19 Elderly man not in distress c/o mild epigastric pain HEENT: Mm dry, mild anemia, PERR:LA, EOMI no Nystagmus NECK: NO JVd No Bruit CHEST: CTA B/L CVS; S1S2 R ABD: No distention, mild epigastric tenderness, BS + EXT: No jody afeet, no calf tenderness BIOLOGICAL SCIENTIST: Mild confusion otherwise oriented to place, time and month confused about date, tremmors +, non focal motor exanm. PSYCH: No hallucinogen or illusions CBC,CMP WBC 9.6 K/mm3 (4.0-10.0) 08/18/18 11:40 RBC 3.77 M/mm3 (4.00-5.60) L 08/18/18 11:40 Hgb 11.4 GM/dL (11.7-16.9) L 08/18/18 11:40 Hct 33.5 % (35.4-49) L 08/18/18 11:40 MCV 89.0 fl (80-96) 08/18/18 11:40 MCH 30.4 pg (25.7-33.7) 08/18/18 11:40 MCHC 34.2 g/dl (32.0-35.9) 08/18/18 11:40 RDW 20.2 % (11.9-15.9) H 08/18/18 11:40 Plt Count 436 K/MM3 (134-434) H 08/18/18 11:40 MPV 8.0 fl (7.5-11.1) 08/18/18 11:40 Absolute Neuts (auto) 7.7 K/mm3 (1.5-8.0) 08/18/18 11:40 Neutrophils % 80.5 % (42.8-82.8) 08/18/18 11:40 Lymphocytes % 15.4 % (8-40) 08/18/18 11:40 Monocytes % 3.8 % (3.8-10.2) 08/18/18 11:40 Eosinophils % 0.0 % (0-4.5) D 08/18/18 11:40 Basophils % 0.3 % (0-2.0) 08/18/18 11:40 Nucleated RBC % 0 % (0-0) 08/18/18 11:40 Sodium 135 mmol/L (136-145) L 08/18/18 11:40 Potassium 4.8 mmol/L (3.5-5.1) 08/18/18 11:40 Chloride 96 mmol/L (98-107) L 08/18/18 11:40 Carbon Dioxide 18 mmol/L (21-32) L 08/18/18 11:40 Anion Gap 20 MMOL/L (8-16) H 08/18/18 11:40 BUN 48 mg/dL (7-18) H 08/18/18 11:40 Creatinine 2.0 mg/dL (0.55-1.3) H 08/18/18 11:40 Creat Clearance w eGFR 33.49 (>60) 08/18/18 11:40 Random Glucose 166 mg/dL (74-106) H 08/18/18 11:40 Calcium 8.4 mg/dL (8.5-10.1) L 08/18/18 11:40 Total Bilirubin 0.4 mg/dL (0.2-1) 08/18/18 11:40 AST 26 U/L (15-37) 08/18/18 11:40 ALT 55 U/L (13-61) 08/18/18 11:40 Alkaline Phosphatase 144 U/L (45-117) H 08/18/18 11:40 Creatine Kinase 49 U/L (26-308) 08/18/18 11:40 Troponin I < 0.02 ng/ml (0.00-0.05) 08/18/18 11:40 Total Protein 7.9 g/dl (6.4-8.2) 08/18/18 11:40 Albumin 4.1 g/dl (3.4-5.0) 08/18/18 11:40 Lipase 252 U/L (73-393) 08/18/18 11:40 CXR: Normal EKG: HR 84 NSR QTC 475 same as base line ECHO: 06/13/18 normal EGD 06/14: mild Gastritis 2 duodenal Ectasia COLONOSCOPY: 06/14/18 Active Medications Amlodipine Besylate (Norvasc -) 10 mg PO DAILY [facility] Atorvastatin Calcium (Lipitor -) 20 mg PO HS [facility] Chlordiazepoxide HCl (Librium -) 10 mg PO Q12H PRN PRN Reason: Signs/symptoms of Withdrawal Stop: 08/21/18 21:00 Chlordiazepoxide HCl (Librium -) 10 mg PO Q8H PRN PRN Reason: Signs/symptoms of Withdrawal Stop: 08/20/18 21:00 Chlordiazepoxide HCl (Librium -) 25 mg PO Q8H [facility] Stop: 08/19/18 13:01 Chlordiazepoxide HCl (Librium -) 15 mg PO Q8H [facility] Stop: 08/20/18 13:01 Chlordiazepoxide HCl (Librium -) 10 mg PO Q8H [facility] Stop: 08/21/18 21:01 Folic Acid (Folic Acid -) 1 mg PO DAILY [facility] Lactated Ringer's (Lactated Ringers Solution) 1,000 mls @ 125 mls/hr IV ASDIR [facility] Last Admin: 08/18/18 15:24 Dose: 125 mls/hr Folic Acid 1 mg/ Thiamine HCl 100 mg/ Multivitamins/Minerals 10 ml/ Sodium Chloride 1,000 mls @ 125 mls/hr IVPB ONCE ONE Stop: 08/18/18 23:59 Last Admin: 08/18/18 15:53 Dose: 125 mls/hr Insulin Aspart (Novolog Vial Sliding Scale -) 1 vial SQ ACHS [facility]; Protocol Last Admin: 08/18/18 17:02 Dose: Not Given Ondansetron HCl (Zofran Injection) 4 mg IVPB Q6H PRN PRN Reason: NAUSEA Pantoprazole Sodium (Protonix Iv) 40 mg IVPUSH BID [facility] Thiamine HCl (Vitamin B1 Injection -) 200 mg IVPB DAILY [facility] Last Admin: 08/18/18 16:45 Dose: 200 mg ASSESSMENT AND PLAN: 68 yrs old man retired ETOH dependent, HTN, T2DM, anemia, GI bleed recently admitted on 06/13/18 [place] with Hb 6.7 received transfusion underwent EGD and colonoscopy that shows gastritis, duodenal ectasia and colonic polyp, subsequently discharged to [place], patient relapse has been drinking 1 bottle of Vodka daily last drink was 2 days ago yesterday felt nausea, vomiting, intially Problem List - Problems (1) Hematemesis Assessment/Plan: Patient present with 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 admitted with similar presentation with drop in H/H EGD show no Varicies, fundal gastritis and Duodenal ectasis, will keep NPO, GI consult, IV Protonix 40 mg q12 hrs serial H/H at present H/H is stable but patient is dehydrated F/ U serial H/H Q 6 hrly, type and screen.Zofran PRN for nausea Code(s): K92.0 - HEMATEMESIS Qualifiers: (2) ADEEL (acute kidney injury) Assessment/Plan: Due to dehydration cont IV Hydration F/u BMP, Sr Mag and Phosphate level, Renal consult Code(s): N17.9 - ACUTE KIDNEY FAILURE, UNSPECIFIED (3) Dehydration Assessment/Plan: IV Hydration F/U BMP in am Code(s): E86.0 - DEHYDRATION (4) HTN (hypertension) Assessment/Plan: Cont amlodipine mmonitor BP control Code(s): I10 - ESSENTIAL (PRIMARY) HYPERTENSION (5) Alcohol abuse Assessment/Plan: Last drink was 48 hrs back no H/O DTs minimal withdrawal at present cont Librium protocol, observe for DTs F/U Phosphate, Magnesium, cont thiamine, Folic acid, aspiration precautions. Code(s): F10.10 - ALCOHOL ABUSE, UNCOMPLICATED (6) Transaminitis Assessment/Plan: Due to ETOH abuse F/U LFTS and Hepatits panel, patient ultrasound shows fatty lever Code(s): R74.0 - NONSPEC ELEV OF LEVELS OF TRANSAMNS & LACTIC ACID DEHYDRGNSE (7) T2DM (type 2 diabetes mellitus) Assessment/Plan: Hold PO meds cont Correction dose lispro coverage Code(s): E11.9 - TYPE 2 DIABETES MELLITUS WITHOUT COMPLICATIONS
[2018-08-18 21:57] LABS: BASO % 0.4 % (0-2.0); EOS % 0.7 % (0-4.5); HEMATOCRIT 30.3 % (35.4-49); HEMOGLOBIN 10.2 GM/dL (11.7-16.9); LYMPH % 35.2 % (8-40); MCH 29.7 pg (25.7-33.7); MCHC 33.7 g/dl (32.0-35.9); MEAN CELL VOLUME 88.3 fl (80-96); MEAN PLT VOLUME 7.9 fl (7.5-11.1); MONO % 8.3 % (3.8-10.2); NEUT % 55.4 % (42.8-82.8); PLATELET COUNT 370 K/MM3 (134-434); RBC 3.43 M/mm3 (4.00-5.60); RDW 20.3 % (11.9-15.9)
[2018-08-18] MEDS ORDERED: ENOXAPARIN NA (PORCINE) 30 MG/0.3 ML DISP.SYRIN SQ SCH (22:00)
[2018-08-18] MEDS: chlordiazePOXIDE HCL 25 MG CAPSULE PO SCH (22:36)
[2018-08-18] MEDS: PANTOPRAZOLE SODIUM 40 MG VIAL IVPUSH SCH (22:37)
[2018-08-18 22:45] LABS: ANION GAP 15 MMOL/L (8-16); BLOOD UREA NITROGEN 40 mg/dL (7-18); CALCIUM 8.3 mg/dL (8.5-10.1); CHLORIDE 101 mmol/L (98-107); CO2 21 mmol/L (21-32); CREATININE 1.6 mg/dL (0.55-1.3); SODIUM 137 mmol/L (136-145)
[2018-08-18 22:46] LABS: GLUCOSE,RANDOM 123 mg/dL (74-106); POTASSIUM 4.7 mmol/L (3.5-5.1)
[2018-08-18] MEDS ORDERED: PT OWN MED DRAWER 7, Y5N ONE (23:28)
[2018-08-19] MEDS: chlordiazePOXIDE HCL 25 MG CAPSULE PO SCH ×2 (06:10→14:47)
[2018-08-19] MEDS: INSULIN SLIDING SCALE (NOVOLOG) 1 VIAL SQ SCH ×4 (06:11→21:40)
[2018-08-19 08:04] LABS: BASO % 0.7 % (0-2.0); HEMATOCRIT 30.9 % (35.4-49); HEMOGLOBIN 10.5 GM/dL (11.7-16.9); LYMPH % 37.1 % (8-40); MCH 29.9 pg (25.7-33.7); MCHC 33.9 g/dl (32.0-35.9); MEAN CELL VOLUME 88.3 fl (80-96); MEAN PLT VOLUME 7.9 fl (7.5-11.1); MONO % 6.8 % (3.8-10.2); NEUT % 54.4 % (42.8-82.8); PLATELET COUNT 361 K/MM3 (134-434); RDW 19.9 % (11.9-15.9); WHITE BLOOD COUNT 5.3 K/mm3 (4.0-10.0)
[2018-08-19 08:23] LABS: ALBUMIN 3.6 g/dl (3.4-5.0); ALK PHOS 120 U/L (45-117); ANION GAP 12 MMOL/L (8-16); BILIRUBIN,TOTAL 0.9 mg/dL (0.2-1); BLOOD UREA NITROGEN 29 mg/dL (7-18); CALCIUM 8.8 mg/dL (8.5-10.1); CHLORIDE 103 mmol/L (98-107); CO2 26 mmol/L (21-32); CREATININE 1.6 mg/dL (0.55-1.3); GLUCOSE,RANDOM 133 mg/dL (74-106); MAGNESIUM 2.9 mg/dL (1.8-2.4); PHOSPHOROUS 2.5 mg/dL (2.5-4.9); POTASSIUM 4.8 mmol/L (3.5-5.1); SGOT/AST 31 U/L (15-37); SGPT/ALT 49 U/L (13-61); SODIUM 140 mmol/L (136-145); TOT PROT 6.9 g/dl (6.4-8.2)
[2018-08-19] MEDS ORDERED: PT OWN MED DRAWER 7, Y5N ONE (09:27)
[2018-08-19] MEDS: amLODIPine BESYLATE 10 MG TABLET (FP) PO SCH (09:33)
[2018-08-19] MEDS: FOLIC ACID 1 MG TABLET (FP) PO SCH (09:33)
[2018-08-19] MEDS: PANTOPRAZOLE SODIUM 40 MG VIAL IVPUSH SCH ×2 (09:33→21:42)
[2018-08-19] MEDS: THIAMINE HCL 200 MG/2 ML VIAL IVPB SCH (09:35)
[2018-08-19] MEDS: LACTATED RINGERS SOLUTION 1,000 ML IV SCH (09:35)
[2018-08-19] MEDS ORDERED: ENOXAPARIN NA (PORCINE) 30 MG/0.3 ML DISP.SYRIN SQ SCH (10:00)
[2018-08-19 14:08] LABS: URINE APPEARANCE CLEAR; URINE BILIRUBIN NEGATIVE (NEGATIVE); URINE COLOR YELLOW; URINE GLUCOSE (UA) TRACE (NEGATIVE); URINE KETONE 2+ (NEGATIVE); URINE LEUK ESTERASE NEGATIVE (NEGATIVE); URINE NITRITE NEGATIVE (NEGATIVE); URINE PROTEIN NEGATIVE (NEGATIVE); URINE UROBILINOGEN 0.2 mg/dL (0.2-1.0)
[2018-08-19] MEDS ORDERED: LACTATED RINGERS SOLUTION 1,000 ML IV SCH (15:38)
--- NOTE | 2018-08-19 15:50 | CONSULT ---
Consult - text type - Consultation Consultation Note: Renal follow up for ADEEL This is a 67 year old [place] gentleman with hx of ETOH abuse, HTN, HLD, DM who presented with hematemesis x 3-5 times and found to have ADEEL with Cr of 1.6. Pt reports drinking about a half bottle of vodka daily. Denies any change in oral food intake. No flank pain, dysuria, abd pain. Making urine. Denies any NSAID use or recent contrast exposure. No recent Abx use. Denies any hx of CKD. Pt has had ADEEL in the past that resolved with hydration. PMhx: as above Allergies: NKDA Family Hx: NC Social Hx: No T/A/D ROS: as per HPI, all orther pertinent ros negative Home Medications Medication Instructions Recorded Amlodipine Besylate [Norvasc -] 10 mg PO DAILY 06/14/18 Glipizide [Glucotrol] 5 mg PO DAILY 06/14/18 Metformin HCl [Glucophage] 500 mg PO BIDAC 06/14/18 Simvastatin [Zocor -] 20 mg PO HS 06/14/18 Amlodipine Besylate [Norvasc -] 10 mg PO DAILY tablet 06/17/18 Folic Acid - 1 mg PO DAILY #30 tablet 06/17/18 Pantoprazole Sodium [Protonix -] 20 mg PO DAILY #30 tablet.ec 06/17/18 Thiamine HCl [Vitamin B1 -] 100 mg PO DAILY #30 tablet 06/17/18 Vital Signs Temperature 97.8 F 08/19/18 14:23 Pulse Rate 74 08/19/18 14:23 Respiratory Rate 20 08/19/18 14:23 Blood Pressure 107/69 08/19/18 14:23 O2 Sat by Pulse Oximetry (%) 98 08/19/18 00:16 Intake & Output 08/16/18 08/17/18 08/18/18 08/19/18 23:59 23:59 23:59 23:59 Intake Total 1225 1400 Balance 1225 1400 Weight 53.524 kg NAD awake and alert neck supple, no JVD dry MM RRR, No M/R CTA, no rales or wheeze soft NT/ND no LE edema, clubbing or cyanosis CBC, BMP 08/19/18 07:00 08/19/18 07:00 Current Medications Amlodipine Besylate (Norvasc -) 10 mg PO DAILY [facility] Last Admin: 08/19/18 09:33 Dose: 10 mg Chlordiazepoxide HCl (Librium -) 10 mg PO Q12H PRN PRN Reason: Signs/symptoms of Withdrawal Stop: 08/21/18 21:00 Chlordiazepoxide HCl (Librium -) 10 mg PO Q8H PRN PRN Reason: Signs/symptoms of Withdrawal Stop: 08/20/18 21:00 Chlordiazepoxide HCl (Librium -) 15 mg PO Q8H [facility] Stop: 08/20/18 13:01 Chlordiazepoxide HCl (Librium -) 10 mg PO Q8H [facility] Stop: 08/21/18 21:01 Folic Acid (Folic Acid -) 1 mg PO DAILY [facility] Last Admin: 08/19/18 09:33 Dose: 1 mg Lactated Ringer's (Lactated Ringers Solution) 1,000 mls @ 100 mls/hr IV ASDIR [facility] Insulin Aspart (Novolog Vial Sliding Scale -) 1 vial SQ ACHS [facility]; Protocol Last Admin: 08/19/18 11:50 Dose: Not Given Ondansetron HCl (Zofran Injection) 4 mg IVPB Q6H PRN PRN Reason: NAUSEA Pantoprazole Sodium (Protonix Iv) 40 mg IVPUSH BID [facility] Last Admin: 08/19/18 09:33 Dose: 40 mg Thiamine HCl (Vitamin B1 Injection -) 200 mg IVPB DAILY [facility] Last Admin: 08/19/18 09:35 Dose: 200 mg 67 year old [place] gentleman with hx of ETOH abuse, HTN, HLD, DM who presented with hematemesis x 3-5 times and found to have ADEEL with Cr of 1.6. #ADEEL likely due to volume depletion in setting of ETOH abuse but r/o AIN given PPI use #Left Renal Cyst #Hematemesis #ETOH abuse #Anemia Renal function unchanged in the last 24 hours Continue isotonic saline for now check urine studies for FeNa, Eosinophlils Renal imaging showed no signs of obstruction trend renal function and electrolytes daily dose all meds for CrCl ~30 avoid IV contrast and NSAIDs Trend H/H Librium protocol oral intake as tolerated Thank you Robert Loredo DO
--- NOTE | 2018-08-19 15:53 | PN ---
Physical Exam: SUBJECTIVE: Patient seen and examined, no nausea, vomiting, no further vomiting , no dark or bloody stools or new concerns. Wants to eat. OBJECTIVE: Vital Signs Period Temp Pulse Resp BP Sys/Colin Pulse Ox Last 24 Hr 97.8 F-98.8 F 56-74 20-20 107-155/65-85 98-98 Intake & Output 08/16/18 08/17/18 08/18/18 08/19/18 23:59 23:59 23:59 23:59 Intake Total 1225 1400 Balance 1225 1400 Weight 118 lb GENERAL: no acute distress Chest: CTAB, no rales or wheezing Abdomen:soft, NT, ND, positive bowel sounds Extremities: no edema, mild tremors CVS: S1S2 regular Laboratory Results - last 24 hr 08/18/18 08/18/18 08/18/18 17:01 21:00 21:00 WBC 6.0 RBC 3.43 L Hgb 10.2 L Hct 30.3 L MCV 88.3 MCH 29.7 MCHC 33.7 RDW 20.3 H Plt Count 370 MPV 7.9 Absolute Neuts (auto) 3.3 Neutrophils % 55.4 D Lymphocytes % 35.2 D Monocytes % 8.3 D Eosinophils % 0.7 D Basophils % 0.4 Nucleated RBC % 0 Sodium 137 Potassium 4.7 Chloride 101 Carbon Dioxide 21 Anion Gap 15 BUN 40 H Creatinine 1.6 H Creat Clearance w eGFR 43.33 POC Glucometer 131 Random Glucose 123 H Hemoglobin A1c % Calcium 8.3 L Phosphorus Magnesium Total Bilirubin AST ALT Alkaline Phosphatase Total Protein Albumin Urine Color Urine Appearance Urine pH Ur Specific [place] Urine Protein Urine Glucose (UA) Urine Ketones Urine Blood Urine Nitrite Urine Bilirubin Urine Urobilinogen Ur Leukocyte Esterase Ur Random Creatinine U Random Total Protein Ur Random Sodium 08/18/18 08/19/18 08/19/18 22:33 06:08 07:00 WBC 5.3 RBC 3.50 L Hgb 10.5 L Hct 30.9 L MCV 88.3 MCH 29.9 MCHC 33.9 RDW 19.9 H Plt Count 361 MPV 7.9 Absolute Neuts (auto) 2.9 Neutrophils % 54.4 Lymphocytes % 37.1 Monocytes % 6.8 Eosinophils % 1.0 Basophils % 0.7 Nucleated RBC % 0 Sodium Potassium Chloride Carbon Dioxide Anion Gap BUN Creatinine Creat Clearance w eGFR POC Glucometer 138 130 Random Glucose Hemoglobin A1c % Calcium Phosphorus Magnesium Total Bilirubin AST ALT Alkaline Phosphatase Total Protein Albumin Urine Color Urine Appearance Urine pH Ur Specific [place] Urine Protein Urine Glucose (UA) Urine Ketones Urine Blood Urine Nitrite Urine Bilirubin Urine Urobilinogen Ur Leukocyte Esterase Ur Random Creatinine U Random Total Protein Ur Random Sodium 08/19/18 08/19/18 08/19/18 07:00 07:00 11:23 WBC RBC Hgb Hct MCV MCH MCHC RDW Plt Count MPV Absolute Neuts (auto) Neutrophils % Lymphocytes % Monocytes % Eosinophils % Basophils % Nucleated RBC % Sodium 140 Potassium 4.8 Chloride 103 Carbon Dioxide 26 Anion Gap 12 BUN 29 H Creatinine 1.6 H Creat Clearance w eGFR 43.33 POC Glucometer 132 Random Glucose 133 H Hemoglobin A1c % 8.2 H Calcium 8.8 Phosphorus 2.5 Magnesium 2.9 H Total Bilirubin 0.9 AST 31 ALT 49 Alkaline Phosphatase 120 H Total Protein 6.9 Albumin 3.6 Urine Color Urine Appearance Urine pH Ur Specific [place] Urine Protein Urine Glucose (UA) Urine Ketones Urine Blood Urine Nitrite Urine Bilirubin Urine Urobilinogen Ur Leukocyte Esterase Ur Random Creatinine U Random Total Protein Ur Random Sodium 08/19/18 08/19/18 08/19/18 13:10 13:10 13:10 WBC RBC Hgb Hct MCV MCH MCHC RDW Plt Count MPV Absolute Neuts (auto) Neutrophils % Lymphocytes % Monocytes % Eosinophils % Basophils % Nucleated RBC % Sodium Potassium Chloride Carbon Dioxide Anion Gap BUN Creatinine Creat Clearance w eGFR POC Glucometer Random Glucose Hemoglobin A1c % Calcium Phosphorus Magnesium Total Bilirubin AST ALT Alkaline Phosphatase Total Protein Albumin Urine Color Yellow Urine Appearance Clear Urine pH 6.0 D Ur Specific [place] 1.013 Urine Protein Negative Urine Glucose (UA) Trace Urine Ketones 2+ H Urine Blood Negative Urine Nitrite Negative Urine Bilirubin Negative Urine Urobilinogen 0.2 Ur Leukocyte Esterase Negative Ur Random Creatinine U Random Total Protein 33.7 H Ur Random Sodium 107 08/19/18 13:10 WBC RBC Hgb Hct MCV MCH MCHC RDW Plt Count MPV Absolute Neuts (auto) Neutrophils % Lymphocytes % Monocytes % Eosinophils % Basophils % Nucleated RBC % Sodium Potassium Chloride Carbon Dioxide Anion Gap BUN Creatinine Creat Clearance w eGFR POC Glucometer Random Glucose Hemoglobin A1c % Calcium Phosphorus Magnesium Total Bilirubin AST ALT Alkaline Phosphatase Total Protein Albumin Urine Color Urine Appearance Urine pH Ur Specific [place] Urine Protein Urine Glucose (UA) Urine Ketones Urine Blood Urine Nitrite Urine Bilirubin Urine Urobilinogen Ur Leukocyte Esterase Ur Random Creatinine 44 U Random Total Protein Ur Random Sodium Active Medications Generic Name Dose Route Start Last Admin Trade Name Oscarq PRN Reason Stop Dose Admin Amlodipine Besylate 10 mg 08/19/18 10:00 08/19/18 09:33 Norvasc - PO 10 mg DAILY [facility] Administration Chlordiazepoxide HCl 10 mg 08/20/18 21:00 Librium - PO 08/21/18 21:00 Q12H PRN Signs/symptoms of Withdrawal Chlordiazepoxide HCl 10 mg 08/18/18 14:59 Librium - PO 08/20/18 21:00 Q8H PRN Signs/symptoms of Withdrawal Chlordiazepoxide HCl 15 mg 08/19/18 21:00 Librium - PO 08/20/18 13:01 Q8H [facility] Chlordiazepoxide HCl 10 mg 08/20/18 21:00 Librium - PO 08/21/18 21:01 Q8H [facility] Folic Acid 1 mg 08/19/18 10:00 08/19/18 09:33 Folic Acid - PO 1 mg DAILY [facility] Administration Lactated Ringer's 1,000 mls @ 100 mls/hr 08/19/18 15:38 Lactated Ringers Solution IV ASDIR [facility] Insulin Aspart 1 vial 08/18/18 16:30 08/19/18 11:50 Novolog Vial Sliding Scale - SQ Not Given ACHS [facility] Protocol Ondansetron HCl 4 mg 08/18/18 15:06 Zofran Injection IVPB Q6H PRN NAUSEA Pantoprazole Sodium 40 mg 08/18/18 22:00 08/19/18 09:33 Protonix Iv IVPUSH 40 mg BID [facility] Administration Thiamine HCl 200 mg 08/18/18 15:30 08/19/18 09:35 Vitamin B1 Injection - IVPB 200 mg DAILY [facility] Administration ASSESSMENT/PLAN: 67 yom with PMHx of HTN, DM, HLD, ETOH abuse, Hemetesis/Acute blood loss anemia in 05/2018, s/p EGD/colonoscopy with antral gastritis/Duodenal ectasia/colonic polyps, prior admissions to [facility] admitted with reported hemetemesis and ongoing ETOH abuse. -Reported hemetemsis suspect alcoholic gastritis -ADEEL, suspect hypovolumia, r/o intrinsic process/ATN -Chronic anemia -ETOH abuse -Hepatic steatosis -HTN -NIDDM Plan: H/h stable, no further concerns for hemetemesis or melena. Advance diet as tolerated. Continue IV PPI for now and monitor h/h. Cr plateaued, renal/bladder US noted, follow up renal input. Continue IVF LR at 100 ml/hr for now Librium detox, folate/MVI/thiamine. Declines park care. ETOH cessation counseling provided Continue Amlodipine DVTPPX with SCDs for now given concerns for bleed Dispo in 1-2 days pending clinical improvement. Plan discussed with patient and nursing in detail, all questions answered. Visit type - Emergency Visit Emergency Visit: Yes ED Registration Date: 08/19/18 Care time: The patient presented to the Emergency Department on the above date and was hospitalized for further evaluation of their emergent condition. - New Patient This patient is new to me today: Yes Date on this admission: 08/19/18 - Critical Care Critical Care patient: No - Discharge Referral Referred to [facility] Med P.C.: No
[2018-08-19] MEDS: chlordiazePOXIDE 5 MG CAPSULE PO SCH (21:31)
[2018-08-19] MEDS ORDERED: ATORVASTATIN CA 20 MG TABLET (FP) PO SCH (22:00)
[2018-08-20] MEDS: chlordiazePOXIDE 5 MG CAPSULE PO SCH ×3 (05:26→21:32)
[2018-08-20] MEDS: INSULIN SLIDING SCALE (NOVOLOG) 1 VIAL SQ SCH ×4 (06:10→21:32)
[2018-08-20 07:17] LABS: ALBUMIN 3.5 g/dl (3.4-5.0); ALK PHOS 111 U/L (45-117); ANION GAP 6 MMOL/L (8-16); BLOOD UREA NITROGEN 22 mg/dL (7-18); CALCIUM 9.1 mg/dL (8.5-10.1); CHLORIDE 100 mmol/L (98-107); CO2 30 mmol/L (21-32); CREATININE 1.4 mg/dL (0.55-1.3); GLUCOSE,RANDOM 186 mg/dL (74-106); POTASSIUM 4.2 mmol/L (3.5-5.1); SGOT/AST 33 U/L (15-37); SGPT/ALT 48 U/L (13-61); SODIUM 136 mmol/L (136-145); TOT PROT 6.5 g/dl (6.4-8.2)
[2018-08-20 07:20] LABS: BASO % 0.8 % (0-2.0); EOS % 1.8 % (0-4.5); HEMATOCRIT 30.9 % (35.4-49); HEMOGLOBIN 10.5 GM/dL (11.7-16.9); LYMPH % 38.4 % (8-40); MCH 29.9 pg (25.7-33.7); MCHC 33.9 g/dl (32.0-35.9); MEAN CELL VOLUME 88.4 fl (80-96); MONO % 4.8 % (3.8-10.2); NEUT % 54.2 % (42.8-82.8); PLATELET COUNT 312 K/MM3 (134-434); RDW 19.6 % (11.9-15.9); WHITE BLOOD COUNT 6.3 K/mm3 (4.0-10.0)
[2018-08-20 07:27] LABS: INR 0.87 (0.83-1.09); PROTHROMBIN TIME (PATIENT) 10.3 SEC (9.7-13.0)
[2018-08-20] MEDS ORDERED: PT OWN MED DRAWER 7, Y5N ONE (09:42)
[2018-08-20] MEDS: FOLIC ACID 1 MG TABLET (FP) PO SCH (09:44)
[2018-08-20] MEDS: amLODIPine BESYLATE 10 MG TABLET (FP) PO SCH (09:44)
[2018-08-20] MEDS: THIAMINE HCL 200 MG/2 ML VIAL IVPB SCH (09:44)
[2018-08-20] MEDS: PANTOPRAZOLE SODIUM 40 MG VIAL IVPUSH SCH (09:51)
[2018-08-20] MEDS ORDERED: amLODIPine BESYLATE 10 MG TABLET (FP) PO SCH (13:29)
--- NOTE | 2018-08-20 13:29 | PN ---
Physical Exam: SUBJECTIVE: Patient seen and examined, no complaints, tolerating diet, no nausea , vomiting or dark stools. OBJECTIVE: Vital Signs Period Temp Pulse Resp BP Sys/Colin Pulse Ox Last 24 Hr 97.5 F-98.2 F 65-86 18-20 103-142/40-69 97 GENERAL: sitting in chair in no acute distress Neck: soft, supple, no JVD Chest: CTAB, no rales or wheezing Abdomen:soft, NT throughout, ND, positive bowel sounds Extremities: no edema, minimal tremors Pscyh: pleasant, co-operative Laboratory Results - last 24 hr 08/19/18 08/19/18 08/19/18 13:10 13:10 13:10 WBC RBC Hgb Hct MCV MCH MCHC RDW Plt Count MPV Absolute Neuts (auto) Neutrophils % Lymphocytes % Monocytes % Eosinophils % Basophils % Nucleated RBC % PT with INR INR Sodium Potassium Chloride Carbon Dioxide Anion Gap BUN Creatinine Creat Clearance w eGFR POC Glucometer Random Glucose Calcium Total Bilirubin AST ALT Alkaline Phosphatase Total Protein Albumin Urine Color Yellow Urine Appearance Clear Urine pH 6.0 D Ur Specific [place] 1.013 Urine Protein Negative Urine Glucose (UA) Trace Urine Ketones 2+ H Urine Blood Negative Urine Nitrite Negative Urine Bilirubin Negative Urine Urobilinogen 0.2 Ur Leukocyte Esterase Negative Ur Random Creatinine U Random Total Protein 33.7 H Ur Random Sodium 107 08/19/18 08/19/18 08/19/18 13:10 17:00 19:52 WBC RBC Hgb Hct MCV MCH MCHC RDW Plt Count MPV Absolute Neuts (auto) Neutrophils % Lymphocytes % Monocytes % Eosinophils % Basophils % Nucleated RBC % PT with INR INR Sodium Potassium Chloride Carbon Dioxide Anion Gap BUN Creatinine Creat Clearance w eGFR POC Glucometer 174 298 Random Glucose Calcium Total Bilirubin AST ALT Alkaline Phosphatase Total Protein Albumin Urine Color Urine Appearance Urine pH Ur Specific [place] Urine Protein Urine Glucose (UA) Urine Ketones Urine Blood Urine Nitrite Urine Bilirubin Urine Urobilinogen Ur Leukocyte Esterase Ur Random Creatinine 44 U Random Total Protein Ur Random Sodium 08/20/18 08/20/18 08/20/18 05:35 06:00 06:00 WBC 6.3 RBC 3.50 L Hgb 10.5 L Hct 30.9 L MCV 88.4 MCH 29.9 MCHC 33.9 RDW 19.6 H Plt Count 312 MPV 8.0 Absolute Neuts (auto) 3.4 Neutrophils % 54.2 Lymphocytes % 38.4 Monocytes % 4.8 Eosinophils % 1.8 Basophils % 0.8 Nucleated RBC % 0 PT with INR 10.30 INR 0.87 Sodium Potassium Chloride Carbon Dioxide Anion Gap BUN Creatinine Creat Clearance w eGFR POC Glucometer 169 Random Glucose Calcium Total Bilirubin AST ALT Alkaline Phosphatase Total Protein Albumin Urine Color Urine Appearance Urine pH Ur Specific [place] Urine Protein Urine Glucose (UA) Urine Ketones Urine Blood Urine Nitrite Urine Bilirubin Urine Urobilinogen Ur Leukocyte Esterase Ur Random Creatinine U Random Total Protein Ur Random Sodium 08/20/18 08/20/18 06:00 12:10 WBC RBC Hgb Hct MCV MCH MCHC RDW Plt Count MPV Absolute Neuts (auto) Neutrophils % Lymphocytes % Monocytes % Eosinophils % Basophils % Nucleated RBC % PT with INR INR Sodium 136 Potassium 4.2 Chloride 100 Carbon Dioxide 30 Anion Gap 6 L BUN 22 H Creatinine 1.4 H Creat Clearance w eGFR 50.55 POC Glucometer 286 Random Glucose 186 H Calcium 9.1 Total Bilirubin 1.0 AST 33 ALT 48 Alkaline Phosphatase 111 Total Protein 6.5 Albumin 3.5 Urine Color Urine Appearance Urine pH Ur Specific [place] Urine Protein Urine Glucose (UA) Urine Ketones Urine Blood Urine Nitrite Urine Bilirubin Urine Urobilinogen Ur Leukocyte Esterase Ur Random Creatinine U Random Total Protein Ur Random Sodium Active Medications Generic Name Dose Route Start Last Admin Trade Name Oscarq PRN Reason Stop Dose Admin Amlodipine Besylate 10 mg 08/19/18 10:00 08/20/18 09:44 Norvasc - PO 10 mg DAILY [facility] Administration Chlordiazepoxide HCl 10 mg 08/20/18 21:00 Librium - PO 08/21/18 21:00 Q12H PRN Signs/symptoms of Withdrawal Chlordiazepoxide HCl 10 mg 08/20/18 21:00 Librium - PO 08/21/18 05:01 Q8H [facility] Folic Acid 1 mg 08/19/18 10:00 08/20/18 09:44 Folic Acid - PO 1 mg DAILY [facility] Administration Lactated Ringer's 1,000 mls @ 100 mls/hr 08/19/18 15:38 08/19/18 21:32 Lactated Ringers Solution IV 100 mls/hr ASDIR [facility] Administration Insulin Aspart 1 vial 08/18/18 16:30 08/20/18 12:13 Novolog Vial Sliding Scale - SQ 6 units ACHS [facility] Protocol Ondansetron HCl 4 mg 08/18/18 15:06 Zofran Injection IVPB Q6H PRN NAUSEA Pantoprazole Sodium 40 mg 08/18/18 22:00 08/20/18 09:51 Protonix Iv IVPUSH 40 mg BID [facility] Administration Thiamine HCl 200 mg 08/18/18 15:30 08/20/18 09:44 Vitamin B1 Injection - IVPB 200 mg DAILY [facility] Administration ASSESSMENT/PLAN: 67 yom with PMHx of HTN, DM, HLD, ETOH abuse, Hemetesis/Acute blood loss anemia in 05/2018, s/p EGD/colonoscopy with antral gastritis/Duodenal ectasia/colonic polyps, prior admissions to [facility] admitted with reported hemetemesis and ongoing ETOH abuse. -Reported hemetemsis suspect alcoholic gastritis -ADEEL, suspect hypovolumia, r/o intrinsic process/ATN -Chronic anemia -ETOH abuse -Hepatic steatosis -HTN -NIDDM Plan: H/h stable, no further concerns for hemetemesis or melena. Tolerating diet. Change PPI to PO. Renal function improved. renal/bladder US and nephrology input noted. Continue IVF. Librium detox, folate/MVI/thiamine. Declines moran care. ETOH cessation counseling provided Continue Amlodipine DVTPPX with SCDs for now given concerns for bleed Dispo in 24 hours if renal function stable and no new concerns. Plan discussed with patient and nursing in detail, all questions answered. Visit type - Emergency Visit Emergency Visit: Yes ED Registration Date: 08/19/18 Care time: The patient presented to the Emergency Department on the above date and was hospitalized for further evaluation of their emergent condition. - New Patient This patient is new to me today: No - Critical Care Critical Care patient: No - Discharge Referral Referred to [facility] Med P.C.: No
--- NOTE | 2018-08-20 14:36 | PN ---
Progress Note, Physician Chief Complaint: The patient examined in his room, on his bed. Seems comfortable. IV fluids infusing. denies any further vomiting. History of Present Illness: This is a 67 year old [place] gentleman with hx of ETOH abuse, HTN, HLD, DM who presented with hematemesis x 3-5 times. Noted to have ADEEL with Cr of 1.6. Pt admits to drinking about a half bottle of vodka daily. Denies any change in oral food intake. No flank pain, dysuria, abd pain. Making urine. Denies any NSAID use or recent contrast exposure. No recent Abx use. Denies any hx of CKD. Pt has had ADEEL in the past that resolved with hydration. - Current Medication List Current Medications: Active Medications Amlodipine Besylate (Norvasc -) 10 mg PO DAILY [facility] Chlordiazepoxide HCl (Librium -) 10 mg PO Q12H PRN PRN Reason: Signs/symptoms of Withdrawal Stop: 08/21/18 21:00 Chlordiazepoxide HCl (Librium -) 10 mg PO Q8H [facility] Stop: 08/21/18 05:01 Folic Acid (Folic Acid -) 1 mg PO DAILY [facility] Last Admin: 08/20/18 09:44 Dose: 1 mg Insulin Aspart (Novolog Vial Sliding Scale -) 1 vial SQ ACHS [facility]; Protocol Last Admin: 08/20/18 12:13 Dose: 6 units Ondansetron HCl (Zofran Injection) 4 mg IVPB Q6H PRN PRN Reason: NAUSEA Pantoprazole Sodium (Protonix -) 40 mg PO DAILY [facility] Thiamine HCl (Vitamin B1 Injection -) 200 mg IVPB DAILY [facility] Last Admin: 08/20/18 09:44 Dose: 200 mg - Objective Vital Signs: Vital Signs Temperature 98.1 F 08/20/18 09:13 Pulse Rate 76 08/20/18 09:13 Respiratory Rate 18 08/20/18 09:13 Blood Pressure 142/69 08/20/18 09:13 O2 Sat by Pulse Oximetry (%) 97 08/19/18 23:26 Constitutional: Yes: Anxious Eyes: Yes: Conjunctiva Clear HENT: Yes: Normocephalic Neck: Yes: Trachea Midline Cardiovascular: Yes: Regular Rate and Rhythm, S1, S2 Respiratory: Yes: CTA Bilaterally, Diminished Gastrointestinal: Yes: Normal Bowel Sounds, Soft, Distention, Tenderness Genitourinary: No: Bladder Distention, CVA Tenderness - Left, CVA Tenderness - Right Musculoskeletal: No: Back Pain, Joint Stiffness, Joint Swelling Extremities: Yes: WNL Labs: CBC, BMP 08/20/18 06:00 08/20/18 06:00 INR, PTT INR 0.87 (0.83-1.09) 08/20/18 06:00 Assessment/Plan This is a 67 year old [place] gentleman with hx of ETOH abuse, HTN, HLD, DM who presented with hematemesis x 3-5 times and found to have ADEEL with Cr of 1.6. Serum creatinine slowly improving. Today it is 1.4. Oral hydration is well tolerated. Will monitor the renal functions off IV fluids. Vows not to take ETOH anymore!!!??? Thank you. Will follow with you. Niharika OMER
[2018-08-20] MEDS ORDERED: INSULIN (NOVOLOG) ASPART 100 UNITS/ML 10ML VIAL ONE ×2 (16:45→21:26)
[2018-08-20] MEDS ORDERED: chlordiazePOXIDE 5 MG CAPSULE PO PRN (21:00)
[2018-08-20] MEDS ORDERED: chlordiazePOXIDE 5 MG CAPSULE PO SCH (21:00)
[2018-08-21] MEDS: chlordiazePOXIDE 5 MG CAPSULE PO SCH (05:54)
[2018-08-21] MEDS: INSULIN SLIDING SCALE (NOVOLOG) 1 VIAL SQ SCH ×2 (06:36→12:17)
[2018-08-21 07:39] LABS: HEMATOCRIT 31.7 % (35.4-49); HEMOGLOBIN 10.6 GM/dL (11.7-16.9); MCH 29.7 pg (25.7-33.7); MCHC 33.3 g/dl (32.0-35.9); MEAN CELL VOLUME 89.2 fl (80-96); MEAN PLT VOLUME 8.2 fl (7.5-11.1); PLATELET COUNT 265 K/MM3 (134-434); RBC 3.55 M/mm3 (4.00-5.60); RDW 19.7 % (11.9-15.9); WHITE BLOOD COUNT 7.7 K/mm3 (4.0-10.0)
[2018-08-21 07:49] LABS: ANION GAP 7 MMOL/L (8-16); BLOOD UREA NITROGEN 34 mg/dL (7-18); CALCIUM 9.6 mg/dL (8.5-10.1); CHLORIDE 97 mmol/L (98-107); CO2 30 mmol/L (21-32); CREATININE 1.5 mg/dL (0.55-1.3); GLUCOSE,RANDOM 171 mg/dL (74-106); POTASSIUM 4.1 mmol/L (3.5-5.1); SODIUM 134 mmol/L (136-145)
[2018-08-21] MEDS ORDERED: PT OWN MED DRAWER 7, Y5N ONE (09:14)
[2018-08-21] MEDS: FOLIC ACID 1 MG TABLET (FP) PO SCH (09:17)
[2018-08-21] MEDS: THIAMINE HCL 200 MG/2 ML VIAL IVPB SCH (09:17)
[2018-08-21 09:39] VITALS: BP 148/78; PULSE 69; TEMP 97.5
[2018-08-21] MEDS ORDERED: PANTOPRAZOLE 40 MG TABLET (FP) PO SCH (10:00)
--- NOTE | 2018-08-21 11:38 | DS ---
Physical Exam: SUBJECTIVE: Patient seen and examined, no complaints, tolerating diet well. No anxiety or tremors. OBJECTIVE: Vital Signs Period Temp Pulse Resp BP Sys/Colin Pulse Ox Last 24 Hr 97.4 F-98.1 F 69-94 20-22 118-148/57-78 100 PHYSICAL EXAM GENERAL: AA, oriented, no acute distress HEENT: PERRL, EOMI Neck: soft, supple, no JVD Abdomen:Soft, NT throughout, ND, positive bowel sounds Extremities: no edema or tremors Psych: co-operative Skin: no lesions noted neuro: facial symmetry, tongue midline, cranial nerves II-XII grossly intact, Gait normal LABS Laboratory Results - last 24 hr 08/20/18 08/20/18 08/20/18 12:10 16:36 21:31 WBC RBC Hgb Hct MCV MCH MCHC RDW Plt Count MPV Sodium Potassium Chloride Carbon Dioxide Anion Gap BUN Creatinine Creat Clearance w eGFR POC Glucometer 286 169 252 Random Glucose Calcium 08/21/18 08/21/18 08/21/18 05:53 06:30 06:30 WBC 7.7 RBC 3.55 L Hgb 10.6 L Hct 31.7 L MCV 89.2 MCH 29.7 MCHC 33.3 RDW 19.7 H Plt Count 265 MPV 8.2 Sodium 134 L Potassium 4.1 Chloride 97 L Carbon Dioxide 30 Anion Gap 7 L BUN 34 H Creatinine 1.5 H Creat Clearance w eGFR 46.68 POC Glucometer 195 Random Glucose 171 H Calcium 9.6 Abdominal US: Right upper abdomen ultrasound. The liver measures 15.2 cm in sagittal length with a slightly dense echotexture. Gallbladder is borderline over distended measuring 9 cm in sagittal length without intraluminal stones or thickening of its wall. No pericholecystic free fluid is present. No intra or extrahepatic bile duct dilatation is seen. The right kidney measures 9.2 cm sagittal length and appears unremarkable. Visualized portion of the pancreas appears unremarkable Visualized portion of the proximal abdominal aorta and inferior vena cava appear unremarkable. Normal flow in the main portal vein. IMPRESSION: Mild fatty infiltration of the liver versus hepatocellular disease. Please correlate with liver enzymes. Almost borderline over distended gallbladder without intraluminal stones or sonographic evidence of acute cholecystitis Renal/Bladder US: Renal and urinary bladder ultrasound The right kidney measures 9.8 cm in sagittal length and the left kidney measured 9.7 cm. There is a simple cyst in the left renal lower pole measuring 2.3 x 2.1 x 1.9 cm. Both kidneys appear otherwise unremarkable. Visualized portion of the liver appears unremarkable The urinary bladder is slightly over distended with a volume of 650 cc without wall thickening. Bilateral ureteral jets were identified. There is approximately 144 cc of postvoid urine residue. Prostate gland volume is 11.6 cc IMPRESSION: Left renal lower pole partially exophytic simple cyst measuring 2.3 cm in maximum dimension. Both kidneys appear otherwise unremarkable. Slightly over distended urinary bladder without wall thickening. Bilaterally ureteral jets were identified. Normal size prostate gland with heterogeneous echotexture. There is approximately 144 cc of postvoid urine residue. HOSPITAL COURSE: Date of Admission:08/19/18 Date of Discharge: 08/21/18 Minutes to complete discharge: 40 Discharge Summary Reason For Visit: ACUTE KIDNEY INJURY HEMATEMESIS Current Active Problems ADEEL (acute kidney injury) (Acute) Acute kidney injury (Acute) Alcohol abuse (Acute) Dehydration (Acute) HTN (hypertension) (Acute) Hematemesis (Acute) T2DM (type 2 diabetes mellitus) (Acute) Transaminitis (Acute) Hospital Course: 68 yom with PMHx of ETOH abuse, HTN, NIDDM, HLD, suspected UGIB 05/2018 s/p EGD with antral gastritis/Duodenal ectasia, admitted with reported 4-5 episodes of hemetemesis in the setting of ETOH binge. Patient was placed on iv protonix, no events of bleeding or vomiting were noted inhouse. His hemoglobin was stable. He declined park care and finished his librium detox inhouse. He was also noted with ADEEL, creatinine of 2, he was placed on IV hydration, nephrology was consulted. He had renal/bladder US, results as above but negative for acute concerns. His renal function improved, cr is 1.5 prior to discharge and cleared by nephrology for discharge with outpatient follow up. Condition: Stable - Instructions Diet, Activity, Other Instructions: You were admitted with reported blood in vomitus and found with abnormal kidney function. No bleeding was noted during your hospital stay. You completed librium detox You were seen by rotary furnace tender and your kidney function has improved but normalized and will need close monitoring with a kidney doctor. MEDICATION: STOP YOUR METFORMIN FOR NOW TILL FURTHER INSTRUCTED BY YOUR DOCTOR. Continue other medications as before INSTRUCTIONS: Strongly advise alcohol cessation. Advise blood sugar checks before meals and at bedtime and notify doctor if persistently >140 noted. Maintain adequate hydration and blood sugar control as dehydration and high blood sugars can also result in worsening kidney function. FOLLOW UP: With your primary care doctor in [address] Loredo in 1 week Blood work BMP (basic metabolic panel) to check your kidneys in 5-7 days. If you notice any dark or bloody stools, bloody vomitus, decreased urination, inability to eat or any new concerns, please call 911 or come to the ED Referrals: Celine Fitzgerald MD [Primary Care Provider] - Robert Loredo MD [Staff Physician] - Disposition: HOME - Home Medications Comprehensive Discharge Medication List: Ambulatory Orders Glipizide [Glucotrol] 5 mg PO DAILY 06/14/18 Metformin HCl [Glucophage] 500 mg PO BIDAC 06/14/18 Simvastatin [Zocor -] 20 mg PO HS 06/14/18 Amlodipine Besylate [Norvasc -] 10 mg PO DAILY tablet 06/17/18 Folic Acid - 1 mg PO DAILY #30 tablet 06/17/18 Pantoprazole Sodium [Protonix -] 20 mg PO DAILY #30 tablet.ec 06/17/18 Thiamine HCl [Vitamin B1 -] 100 mg PO DAILY #30 tablet 06/17/18 This patient is new to me today: No Emergency Visit: Yes ED Registration Date: 08/19/18 Care time: The patient presented to the Emergency Department on the above date and was hospitalized for further evaluation of their emergent condition. Critical Care patient: No - Discharge Referral Referred to [facility] Med P.C.: No
--- NOTE | 2018-08-21 11:44 | PN ---
Progress Note (short form) - Note Progress Note: Renal follow up for ADEEL Pt seen and examined at the bedside feels well, wants to go home no sob, cp, abd pain, N/V/D making urine tolerating oral diet Vital Signs Temperature 97.5 F L 08/21/18 09:00 Pulse Rate 69 08/21/18 09:00 Respiratory Rate 20 08/21/18 09:00 Blood Pressure 148/78 08/21/18 09:00 O2 Sat by Pulse Oximetry (%) 100 08/20/18 21:00 Intake & Output 08/18/18 08/19/18 08/20/18 08/21/18 23:59 23:59 23:59 23:59 Intake Total 1225 3150 3090 830 Output Total 400 1275 Balance 1225 2750 1815 830 Weight 53.524 kg NAD RRR, No M/R CTA, no rales or wheeze soft NT/ND no LE edema CBC, BMP 08/21/18 06:30 08/21/18 06:30 Current Medications Amlodipine Besylate (Norvasc -) 10 mg PO DAILY [facility] Last Admin: 08/21/18 09:17 Dose: 10 mg Chlordiazepoxide HCl (Librium -) 10 mg PO Q12H PRN PRN Reason: Signs/symptoms of Withdrawal Stop: 08/21/18 21:00 Folic Acid (Folic Acid -) 1 mg PO DAILY [facility] Last Admin: 08/21/18 09:17 Dose: 1 mg Insulin Aspart (Novolog Vial Sliding Scale -) 1 vial SQ ACHS [facility]; Protocol Last Admin: 08/21/18 06:36 Dose: 2 units Ondansetron HCl (Zofran Injection) 4 mg IVPB Q6H PRN PRN Reason: NAUSEA Pantoprazole Sodium (Protonix -) 40 mg PO DAILY [facility] Last Admin: 08/21/18 09:17 Dose: 40 mg Thiamine HCl (Vitamin B1 Injection -) 200 mg IVPB DAILY [facility] Last Admin: 08/21/18 09:17 Dose: 200 mg 67 year old [place] gentleman with hx of ETOH abuse, HTN, HLD, DM who presented with hematemesis x 3-5 times and found to have ADEEL with Cr of 1.6. #ADEEL likely due to volume depletion in setting of ETOH abuse but r/o AIN given PPI use #Left Renal Cyst #Hematemesis #ETOH abuse #Anemia Renal function unchanged however no overt electrolyte or acid base abnormalities Tolerating oral diet Renal imaging showed no signs of obstruction dose all meds for CrCl ~30 stable for discharge with outpatient follow up would hold Metformin for now advised to maintain good oral intake Advised to avoid NSAIDs Thank you Robert Loredo DO
== END 2018-08-21 12:43 | disposition home or self-care (01) | DRG 683 ==
LOC: JER 11:15 → JERBED 14:05 → INTOOBSV 14:49 → OBSVTOIN 14:49 → J5S 15:00 → OBSVTOIN 08-19 09:15
PROVIDERS: ADMIT Internal Medicine; ATTEND Hospitalist
PROC: HZ2ZZZZ Detoxification Services for Substance Abuse Treatment (ICD-10-PCS; principal; 2018-08-18)
DX: N17.9 Acute kidney failure, unspecified (principal); K92.0 Hematemesis; E11.9 Type 2 diabetes mellitus without complications; K29.20 Alcoholic gastritis without bleeding; F10.10 Alcohol abuse, uncomplicated; I10 Essential (primary) hypertension; D50.0 Iron deficiency anemia secondary to blood loss (chronic); K76.0 Fatty (change of) liver, not elsewhere classified; E78.5 Hyperlipidemia, unspecified; Z79.84 Long term (current) use of oral hypoglycemic drugs; F17.210 Nicotine dependence, cigarettes, uncomplicated; Z88.0 Allergy status to penicillin; E86.0 Dehydration; D64.9 Anemia, unspecified; N28.1 Cyst of kidney, acquired; R74.0 Nonspecific elevation of levels of transaminase and lactic acid dehydrogenase [LDH]
CPT/HCPCS: 36415; 71045-TC-FY; 76705-TC; 76775-TC; 76856-TC; 80048; 80053; 81003; 82272; 82550; 82565; 82962; 83036; 83690; 83735; 84100; 84156; 84300; 84484; 85025; 85027; 85610; 86850; 86900; 86901; 93005; 93010; 99283-25; G0378; J7030